=== PATIENT | female | born 1975 | race Hispanic/Latino ===

== ENCOUNTER 2018-04-18 18:28 | Inpatient (IN) | payer BC ==
[~2018-04-18] VITALS: Ht 162.6 cm; Wt 106.6 kg
--- OUTSIDE RECORDS SUMMARY | 2018-04-18 18:32 | XMS REPORT | Clinical Summary ---
Author Author [facility] Organization [facility] Address Unknown Phone Unavailable Care Team Providers Care Gyroscopic Engineering Technician Name Role Phone Leodan Leung MD PCP Allergies No Known Allergies Medications End Date Status Medication Sig Dispensed Refills Start Date Active sertraline (ZOLOFT) 100 0 MG tablet 7 Active ondansetron ODT 0 (ZOFRAN-ODT) 4 MG 7 disintegrating tablet Active ASPIRIN/ACETAMINOPHEN/CAF Take by 0 FEINE (EXCEDRIN MIGRAINE mouth. ORAL) Active PROAIR HFA 90 0 mcg/actuation inhaler 8 Active cholecalciferol, vitamin TK 1 C PO Q 2 D3, 50,000 unit capsule WEEK 8 Active methocarbamol (ROBAXIN) TK 1 T PO 0 750 MG tablet BID 8 Active Problems Not on file Encounters Care Team Description Date Type Specialty Juni Gomez MD Renal colic (Primary Dx); Intractable pain; Hydronephrosis, unspecified hydronephrosis type 04/18/2018 Emergency Emergency Medicine Boogie Schaeffer MD Irritable bowel syndrome, unspecified type; Lesion of pancreas 05/13/2017 Hospital Radiology Encounter Ramone Joseph MA Irritable bowel syndrome, unspecified type (Primary Dx); Lesion of pancreas 05/13/2017 Telephone Gastroenterology Boogie Schaeffer MD NAFLD (nonalcoholic fatty liver disease) (Primary Dx); Constipation, unspecified constipation type; Irritable bowel syndrome with constipation 05/07/2017 Office Visit Gastroenterology Boogie Schaeffer MD 04/23/2017 Telephone Gastroenterology Boogie Schaeffer MD 04/21/2017 Telephone Gastroenterology after 04/17/2017 Family History Medical History Relation Name Comments Heart disease Father No Known Problems Mother Colon cancer Paternal Aunt Kidney cancer Paternal Grandmother Heart disease Sister Relation Name Status Comments Father Alive Mother Alive Paternal Aunt Paternal Grandmother Sister Social History Date Tobacco Use Types Packs/Day Years Used Never Smoker Smokeless Tobacco: Never Used Alcohol Use Drinks/Week oz/Week Comments No Alcohol Habits Answer Date Recorded How often do you have a drink containing alcohol? Never 04/18/2018 How many drinks containing alcohol do you have on Not asked a typical day when you are drinking? How often do you have six or more drinks on one Not asked occasion? Sex Assigned at Date Recorded Not on file Industry Job Start Date Occupation Not on file Not on file Not on file Travel End Travel History Travel Start No recent travel history available. Last Filed Vital Signs Time Taken Vital Sign Reading 04/18/2018 4:57 PM QUALITY CONTROL INSPECTOR Blood Pressure 130/94 04/18/2018 4:57 PM QUALITY CONTROL INSPECTOR Pulse 74 04/18/2018 4:57 PM QUALITY CONTROL INSPECTOR Temperature 36.8 C (98.3 F) 04/18/2018 4:57 PM QUALITY CONTROL INSPECTOR Respiratory Rate 12 04/18/2018 4:57 PM QUALITY CONTROL INSPECTOR Oxygen Saturation 97% - Inhaled Oxygen - Concentration 04/18/2018 8:07 AM QUALITY CONTROL INSPECTOR Weight 107 kg (235 lb) 04/18/2018 8:07 AM QUALITY CONTROL INSPECTOR Height 162.6 cm (5' 4") 04/18/2018 8:07 AM QUALITY CONTROL INSPECTOR Body Mass Index 40.34 Plan of Treatment Health Maintenance Due Date Last Done Comments CERVICAL CANCER SCREENING 1997 INFLUENZA VACCINE 10/06/2017 Procedures Comments Procedure Name Priority Date/Time Associated Diagnosis CT ABDOMEN PELVIS W STAT 04/18/2018 CONTRAST 12:45 PM QUALITY CONTROL INSPECTOR GRAM STAIN STAT 04/18/2018 9:58 AM QUALITY CONTROL INSPECTOR ESTIMATED GFR STAT 04/18/2018 9:46 AM QUALITY CONTROL INSPECTOR LIPASE LEVEL STAT 04/18/2018 9:46 AM QUALITY CONTROL INSPECTOR COMPREHENSIVE METABOLIC STAT 04/18/2018 PANEL 9:46 AM QUALITY CONTROL INSPECTOR CBC WITH PLATELET AND STAT 04/18/2018 DIFFERENTIAL 9:46 AM QUALITY CONTROL INSPECTOR HCG QUALITATIVE, URINE STAT 04/18/2018 SCREEN 8:52 AM QUALITY CONTROL INSPECTOR URINALYSIS SCREEN AND STAT 04/18/2018 MICROSCOPY, WITH REFLEX 8:52 AM QUALITY CONTROL INSPECTOR TO CULTURE CT ABDOMEN PELVIS W Routine 05/13/2017 Irritable bowel syndrome, CONTRAST 6:20 PM QUALITY CONTROL INSPECTOR unspecified type Lesion of pancreas PERSONAL FACTORS Routine 04/30/2017 7:35 AM QUALITY CONTROL INSPECTOR ALBUMIN LEVEL Routine 04/30/2017 7:35 AM QUALITY CONTROL INSPECTOR PLATELET COUNT Routine 04/30/2017 7:35 AM QUALITY CONTROL INSPECTOR ALT (SGPT) Routine 04/30/2017 7:35 AM QUALITY CONTROL INSPECTOR AST (SGOT) Routine 04/30/2017 7:35 AM QUALITY CONTROL INSPECTOR GLUCOSE LEVEL Routine 04/30/2017 7:35 AM QUALITY CONTROL INSPECTOR INTERPRETATION (REFLEX Routine 04/30/2017 [facility]) 7:35 AM QUALITY CONTROL INSPECTOR NAFLD FIBROSIS SCORE Routine 04/30/2017 (REFLEX) 7:35 AM QUALITY CONTROL INSPECTOR after 04/17/2017 Results * CT Abdomen Pelvis W Contrast (04/18/2018 12:45 PM QUALITY CONTROL INSPECTOR) Only the most recent of 2 results within the time period is included. Narrative Performed At EXAMINATION:CT ABDOMEN PELVIS W CONTRAST [facility] CLINICAL HISTORY:Nauseavomiting TECHNIQUE: Multiple axial images of the abdomen and pelvis were obtained following intravenous administration of iodinated contrast. CT imaging was performed with iterative reconstruction technique and/or automated exposure control to reduce radiation dose. COMPARISON: 05/13/2017 FINDINGS: LUNG BASES: Unremarkable ABDOMEN: Liver: Hepatic steatosis. Gallbladder: Prior cholecystectomy. Spleen: The spleen is not enlarged. Pancreas: The pancreas is unremarkable. Adrenal Glands: The adrenal glands are unremarkable. Kidneys: There are multiple right nonobstructing renal stones. A few nonobstructing left stones are present. A 6 mm stone is present in the proximal left ureter resulting in mild left hydronephrosis and asymmetric left perinephric stranding. Vascular: The abdominal aorta is nonaneurysmal. Nodes: No enlarged retroperitoneal or mesenteric lymphadenopathy. Bowel: No bowel obstruction or inflammatory changes. Ascites/fluid collections: No ascites or fluid collections. PELVIS: No mass, fluid collection or significant adenopathy. MUSCULOSKELETAL: No suspicious osseous lesions. IMPRESSION: 1.6 mm stone in the proximal left ureter results in mild left hydronephrosis and asymmetric left perinephric stranding. 2.Additional bilateral nonobstructing nephrolithiasis. 3.Hepatic steatosis. [facility]-[id number] Procedure Note Interface, Radiology Results Incoming - 04/18/2018 12:52 PM QUALITY CONTROL INSPECTOR EXAMINATION: CT ABDOMEN PELVIS W CONTRAST CLINICAL HISTORY: Nausea vomiting TECHNIQUE: Multiple axial images of the abdomen and pelvis were obtained following intravenous administration of iodinated contrast. CT imaging was performed with iterative reconstruction technique and/or automated exposure control to reduce radiation dose. COMPARISON: 05/13/2017 FINDINGS: LUNG BASES: Unremarkable ABDOMEN: Liver: Hepatic steatosis. Gallbladder: Prior cholecystectomy. Spleen: The spleen is not enlarged. Pancreas: The pancreas is unremarkable. Adrenal Glands: The adrenal glands are unremarkable. Kidneys: There are multiple right nonobstructing renal stones. A few nonobstructing left stones are present. A 6 mm stone is present in the proximal left ureter resulting in mild left hydronephrosis and asymmetric left perinephric stranding. Vascular: The abdominal aorta is nonaneurysmal. Nodes: No enlarged retroperitoneal or mesenteric lymphadenopathy. Bowel: No bowel obstruction or inflammatory changes. Ascites/fluid collections: No ascites or fluid collections. PELVIS: No mass, fluid collection or significant adenopathy. MUSCULOSKELETAL: No suspicious osseous lesions. IMPRESSION: 1. 6 mm stone in the proximal left ureter results in mild left hydronephrosis and asymmetric left perinephric stranding. 2. Additional bilateral nonobstructing nephrolithiasis. 3. Hepatic steatosis. [facility]-[id number] Performing Organization Address City/State/Zipcode Phone Number [facility] [address] [place] [address] * Gram stain (04/18/2018 9:58 AM QUALITY CONTROL INSPECTOR) Gram stain result No WBC's [facility] Many Gram positive rods [facility]OSP[facility] Comment: Specimen Information Specimen Source: Urine Specimen Site: Clean catch Specimen Urine Performing Organization Address City/[facility]/Zipcode Phone Number [facility] DEPARTMENT OF [address] [place] [address] PATHOLOGY AND GENOMIC MEDICINE [place] [employer] [address] [place] [id number] [place] [address] * Estimated GFR (04/18/2018 9:46 AM QUALITY CONTROL INSPECTOR) Estimated GFR >=90 mL/min/1.73 m2 [facility] Comment: [facility] CatergoryUnitsInte rpretation G1 >=90 Normal or high G2 60-89Mildly decreased O3l13-11 Mildly to moderately decreased [id number] Moderately to severely decreased G4 15-29Severely decreased G5 <15Kidney failure The eGFR was calculated using the Chronic Kidney Disease Epidemiology Collaboration (CKD-EPI) equation. Interpretation is based on recommendations of the National Kidney Foundation-Kidney Disease Outcomes Quality Initiative (NKF-KDOQI) published in 2014. Specimen Plasma specimen Performing Organization Address City/State/Zipcode Phone Number [facility] DEPARTMENT [address] [place] [phone] PATHOLOGY AND GENOMIC MEDICINE [facility] [address] * CBC with platelet and differential (04/18/2018 9:46 AM QUALITY CONTROL INSPECTOR) WBC 9.8 4.2 - 11.0 k/uL [facility] RBC 4.90 4.04 - 5.86 m/uL [facility] HGB 12.7 11.5 - 15.3 g/dL [facility] HCT 40.8 34.0 - 45.0 % [facility] MCV 83.3 80.0 - 98.0 fL [facility] MCH 25.9 (L) 27.0 - 34.0 pg [facility] MCHC 31.1 (L) 31.5 - 36.5 g/dL [facility] RDW - SD 43.1 37.0 - 51.0 fL [facility] MPV 10.1 7.4 - 10.4 fL [facility] Platelet count 301 150 - 400 k/uL [facility] Nucleated RBC 0.00 /100 WBC [facility] Neutrophils 72.7 (H) 36.0 - 66.0 % [facility] Lymphocytes 19.9 (L) 24.0 - 44.0 % [facility] Monocytes 5.3 0.0 - 6.0 % [facility] Eosinophils 1.4 0.0 - 6.0 % [facility] Basophils 0.3 0.0 - 1.2 % [facility] Immature granulocytes 0.4 0.0 - 1.0 % [facility] Specimen Blood Performing Organization Address City/[facility] Cent[facility]ode [place] [address] PATHOLOGY AND GENOMIC MEDICINE [address] * Lipase level (04/18/2018 9:46 AM QUALITY CONTROL INSPECTOR) Lipase 27 13 - 60 U/L [facility] Specimen Plasma specimen Performing Organization Address [facility] [place] [address] PATHOLOGY AND GENOMIC MEDICINE [address] * Comprehensive metabolic panel (04/18/2018 9:46 AM QUALITY CONTROL INSPECTOR) Sodium 142 135 - 150 mEq/L [facility] Potassium 4.1 3.5 - 5.0 mEq/L [facility] Chloride 105 98 - 112 mEq/L [facility] CO2 24 24 - 31 mmol/L [facility] Anion gap 13@ANIO 7 - 15 mEq/L [facility] BUN 10 7 - 18 mg/dL [facility] Creatinine 0.80 0.50 - 0.90 mg/dL [facility] Glucose 128 (H) 65 - 100 mg/dL [facility] Calcium 9.4 8.3 - 10.2 mg/dL [facility] Protein 7.4 6.3 - 8.3 g/dL [facility] Albumin 3.6 3.5 - 5.0 g/dL [facility] A/G ratio 0.9 0.7 - 3.8 [facility] Alkaline phosphatase 92 0 - 104 U/L [facility] AST 24 10 - 35 U/L [facility] ALT 43 5 - 50 U/L [facility] Total bilirubin 0.4 0.2 - 1.2 mg/dL [facility] Specimen Plasma specimen Performing Organization Address City/[facility] Centercode Phone Number [facility] DEPARTMENT OF [address] [place] [address] PATHOLOGY AND GENOMIC MEDICINE [place] [address] [address] * Urinalysis screen and microscopy, with reflex to culture (04/18/2018 8:52 AM QUALITY CONTROL INSPECTOR) Specimen site Clean catch [facility] Color, UA Yellow [facility] Appearance, UA Cloudy [facility] Specific gravity, UA 1.017 1.001 - 1.035 [facility] pH, UA 6.0 5.0 - 8.5 [facility] Protein, UA 1+ (A) Negative [facility] Glucose, UA Negative Negative [facility] Ketones, UA Negative Negative [facility] Bilirubin, UA Negative Negative [facility] Blood, UA Large (A) Negative [facility] Nitrite, UA Negative Negative [facility] Urobilinogen, UA Negative <2.0 [facility] Leukocyte esterase, UA Trace (A) Negative [facility] Epithelial cells, UA Many /HPF [facility] WBC, UA 8 (H) 0 - 5 /HPF [facility] RBC, UA >200 (H) 0 - 5 /HPF [facility] Bacteria, UA Moderate (A) None seen [facility] Yeast, UA Moderate (A) [facility] Yeast with pseudohyphae, None seen [facility] Specimen Urine Performing Organization Address City/[facility]/Zipcode Phone Number [facility] DEPARTMENT OF [address] [facility] [place] [address] PATHOLOGY AND GENOMIC MEDICINE [place] [employer] [facility] [address] [facility] [facility] * hCG qualitative, urine screen (04/18/2018 8:52 AM QUALITY CONTROL INSPECTOR) hCG qualitative, urine Negative Negative [facility] Comment: [facility] The manufacturers stated sensitivity of HcG test for serum is >/=10 mIU/ml and urine is >/=20mIU/ml. Specimen Urine Performing Organization Address City/[facility]/Zipcode Phone Number [facility] [address] [place] [phone] PATHOLOGY AND GENOMIC MEDICINE [facility] [address] * PERSONAL FACTORS (04/30/2017 7:35 AM QUALITY CONTROL INSPECTOR) Height feet 5 ft [employer] [place] Height inches 4 in [employer] [place] Weight 231 lbs [employer] [place] Calculated BMI 39.6 [employer] [place] Diabetic [facility] [place] Narrative Performed At FASTING:YES [facility] FASTING: YES Resulting Agency Comment Performing Organization Information: Site ID: [id number] Name: [facility] Address: [address] [place] [phone] Director: Emma Alston MD Performing Organization Address City/[facility]/[place] [address] * INTERPRETATION (04/30/2017 7:35 AM QUALITY CONTROL INSPECTOR) Interpretation Comment: [employer] NAFLD Fibrosis Score less than RODRIGUEZ -1.455:Consistent with the absence of significant fibrosis. Reference: Mary P, Gini RANKIN, Bruce G, Hailee E, Melecio J, Yehuda GC, Stewart F, Saksena S, Sarkis DA, et al. The NAFLD fibrosis score: a noninvasive system that identifies liver fibrosis in patients with NAFLD. HEPATOLOGY 2007;45:846-854. If fasting conditions were not met, use caution when interpreting the glucose test result and the NAFLD Fibrosis Score. Narrative Performed At FASTING:YES [facility] FASTING: YES Resulting Agency Comment Performing Organization Information: Site ID: [id number] Name: [facility] Address: [address] [place] [phone] Director: Emma Alston MD Performing Organization Address City/[facility]/[place]code [place] [address] * NAFLD FIBROSIS SCORE (REFLEX) (04/30/2017 7:35 AM QUALITY CONTROL INSPECTOR) NAFLD fibrosis score -2.269 [employer] [place] Narrative Performed At FASTING:YES [facility] FASTING: YES Resulting Agency Comment Performing Organization Information: Site ID: [id number] Name: [facility] Address: [address] [place], [place] [id number] Director: Emma Alston MD Performing Organization Address [facility] Centercode [place] [address] * Platelet count (04/30/2017 7:35 AM QUALITY CONTROL INSPECTOR) Platelet count 383 140 - 400 Thousand/uL [employer] [place] Narrative Performed At FASTING:YES [facility] FASTING: YES Resulting Agency Comment Performing Organization Information: Site ID: [id number] Name: [facility] Address: [address] [place] [phone] Director: Emma Alston MD Performing Organization Address [facility] Centercode [place] [address] * ALT (SGPT) (04/30/2017 7:35 AM QUALITY CONTROL INSPECTOR) ALT 20 6 - 29 U/L [employer] [place] Narrative Performed At FASTING:YES [facility] FASTING: YES Resulting Agency Comment Performing Organization Information: Site ID: [id number] Name: [facility] Address: [address] [place] [phone] Director: Emma Alston MD Performing Organization Address [facility]/[place]code [place] [address] * AST (SGOT) (04/30/2017 7:35 AM QUALITY CONTROL INSPECTOR) AST 18 10 - 30 U/L [facility] [employer] [place] Narrative Performed At FASTING:YES [facility] FASTING: YES Resulting Agency Comment Performing Organization Information: Site ID: [id number] Name: [facility] Address: [address] [place] [phone] Director: Emma Alston MD Performing Organization Address [facility] Centercode Phone Number [employer] [place] [address] [place] [address] * Glucose level (04/30/2017 7:35 AM QUALITY CONTROL INSPECTOR) Glucose 117 (H) 65 - 99 mg/dL [employer] Comment: [place] Fasting reference interval For someone without known diabetes, a glucose value between 100 and 125 mg/dL is consistent with prediabetes and should be confirmed with a follow-up test. Narrative Performed At FASTING:YES [facility] FASTING: YES Resulting Agency Comment Performing Organization Information: Site ID: [id number] Name: [facility] Address: [address] [place] [phone] Director: Emma Alston MD Performing Organization Address [facility] Cent[facility]ofl Phone Number [employer] [place] [address] [place] [address] * Albumin level (04/30/2017 7:35 AM QUALITY CONTROL INSPECTOR) Albumin, S 4.3 3.6 - 5.1 g/dL [employer] [place] Narrative Performed At FASTING:YES [facility] FASTING: YES Resulting Agency Comment Performing Organization Information: Site ID: [id number] Name: [facility] Address: [address] [place], [place] [phone] Director: Emma Alston MD Performing Organization Address [facility] Centercode Phone Number [employer] [place] [address] [place] [address] after 04/17/2017 Insurance Payer Benefit Subscriber ID Type Phone Address Plan / Group BCBS EXCHANGE BLUE xxxxxxxxxxxx Exchange ADVANTAGE HMO EXCH Advance Directives Patient has advance care planning documents on file. For more information, wilmer steve contact: Chandler Diallo [address] [place] [phone]
--- OUTSIDE RECORDS SUMMARY | 2018-04-18 18:33 | XMS REPORT ---
Author Author Admin, [facility] Address Unknown Phone Unavailable Allergies, Adverse Reactions, Alerts Allergy Name Reaction Description Start Date Severity Status Provider No Known Allergies Bri Schenider MA Conditions or Problems Problem Name Problem Code Onset Date Status Entry Date Provider Comment Standard Description Annotate Abdominal pain 789.00 Active Kimmie eKvin MD Abdominal pain, unspecified site DIARRHEA 787.91 Active Kimmie Kevin MD Diarrhea BMI 40.0-44.9 Active Domonique Schneider MD Body Mass Index 40.0-44.9, adult MORBID OBESITY Active Domonique Schneider MD Morbid obesity Back pain 724.5 Active Kimmie Kevin MD Backache, unspecified Diphtheria, tetanus and acellular pertussis vaccination given V06.1 Active Domonique Schneider MD Need for prophylactic vaccination and inoculation against Kbmkrbrdf-bhbbhta-judevcnbf, combined [DTP] [DTaP] Unspecified open wound, unspecified lower leg, initial encounter 891.0 Active Domonique Schneider MD Open wound of knee, leg [except thigh], and ankle, without mention of complication Herpes, genital NOS 054.10 Active Gina Meyer MD Genital herpes, unspecified Acne, cystic 706.1 Active Elvia Conway D.O. Other acne Headache, tension 307.81 Active Elvia Conway D.O. 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 Insomnia due to mental disorder Anemia, deficiency 281.9 Active Alexandra Mims MD Unspecified deficiency anemia Anxiety 300.00 Active Alexandra Mims MD Anxiety state, unspecified Near syncope 780.2 Active Alexandra Mims MD Syncope and collapse Perimenopausal 627.2 Active Elvia Conway D.O. Symptomatic menopausal or female climacteric states Hot flashes, non-menopausal, female 782.62 Active Gina Meyer MD Flushing Vaccination against influenza V04.81 Active Gina Meyer MD Need for prophylactic vaccination and inoculation against influenza Cervical spondylosis 721.0 Active Gina Meyer MD Cervical spondylosis without myelopathy Decreased libido 799.81 Active Nikunj Roberts MD Decreased libido DEPRESSION, MAJOR 296.20 Active Neil Rich MD Major depressive disorder, single episode, unspecified degree Abdominal pain, NOS ICD-789.00 Inactive Domonique Schneider MD Rhinosinusitis, acute ICD-461.8 Inactive Domonique Schneider MD BMI 38.0-38.9 Inactive Domonique Schneider MD Sinus congestion ICD-478.19 Inactive Domonique Schneider MD Constipation ICD-564.00 Inactive Alexandra Mims MD RASH ICD-782.1 Inactive Domonique Schneider MD Obesity Inactive Domonique Schneider MD Verrucae, warts viral ICD-078.10 Inactive Alexandra Mims MD Nausea and vomiting ICD-787.01 Inactive Alexandra Mims MD Abdominal cramps ICD-789.00 Inactive Alexandra Mims MD Insect bite ICD-919.4 Inactive Gina Meyer MD Spondylosis, cervical 721.0 Inactive Nikunj Roberts MD Cervical spondylosis without myelopathy Well woman ICD-V72.31 Inactive Alexandra Mims MD Shoulder pain, left ICD-719.41 Inactive Gina Meyer MD ILIOTIBIAL BAND SYNDROME, BILATERAL ICD-728.89 Inactive Gina Meyer MD COUGH ICD-786.2 Inactive Елена Jacobo DO NEED PROPHYLACTIC VACCINATION&INOCULATION FLU ICD-V04.81 Inactive Елена Jacobo DO OBESITY ICD-278.00 Inactive Domonique Schneider MD MENORRHAGIA ICD-626.2 Inactive Gina Meyer MD Abdominal pain, NOS 789.00 Resolved Domonique Schneider MD Abdominal pain, unspecified site Rhinosinusitis, acute 461.8 Resolved Domonique Schneider MD Other acute sinusitis BMI 38.0-38.9 Resolved Domonique Schneider MD Body Mass Index 38.0-38.9, adult Sinus congestion 478.19 Resolved Domonique Schneider MD Other disease of nasal cavity and sinuses Constipation 564.00 Resolved Gina Meyer MD Constipation, unspecified RASH 782.1 Resolved Domonique Schneider MD Rash and other nonspecific skin eruption Obesity Resolved Domonique Schneider MD Obesity, unspecified Verrucae, warts viral 078.10 Resolved Gina Meyer MD Viral warts, unspecified Nausea and vomiting 787.01 Resolved Gina Meyer MD Nausea with vomiting Abdominal cramps 789.00 Resolved Gina Meyer MD Abdominal pain, unspecified site Insect bite 919.4 Resolved Gina Meyer MD Insect bite, nonvenomous, of other, multiple, and unspecified sites, without mention of infection Well woman V72.31 Resolved Gina Meyer MD Routine gynecological examination Shoulder pain, left 719.41 Resolved Gina Meyer MD Pain in joint involving shoulder region ILIOTIBIAL BAND SYNDROME, BILATERAL 728.89 Resolved Gina Meyer MD Other disorder of muscle, ligament, and fascia COUGH 786.2 Resolved Neil Rich MD Cough NEED PROPHYLACTIC VACCINATION&INOCULATION FLU V04.81 Resolved Neil Rich MD Need for prophylactic vaccination and inoculation against influenza OBESITY 278.00 Resolved Domonique Schneider MD Obesity, unspecified MENORRHAGIA 626.2 Resolved Gina Meyer MD Excessive or frequent menstruation Medication List Medication Instructions Start Date Stop Date Generic Name NDC Status Provider Patient Instruction BENTYL 10 MG ORAL CAPSULE 1 by mouth 4 times a day as needed DICYCLOMINE HCL 92559437205 Active Kimmie Kevin MD Active ACYCLOVIR 400 MG ORAL TABLET 1 tablet by mouth three times a day for 5 days ACYCLOVIR 53923569062 Active Domonique Schneider MD Active ZOLOFT 100 MG ORAL TABLET 1.5 by mouth nightly at bedtime SERTRALINE HCL 28463843980 Active Domonique Schneider MD Active FERROUS SULFATE 325 (65 Fe) MG ORAL TABLET DELAYED RELEASE 1 by mouth 2 times a day FERROUS SULFATE 22290753563 Active Alexandra Mims MD Active BACLOFEN 10 MG ORAL TABLET one tablet by mouth three times a day as needed for muscle spasm BACLOFEN 10 MG ORAL TABLET 855873 BACLOFEN Inactive CLONAZEPAM 0.5 MG ORAL TABLET 1 By Mouth once a day as needed for anxiety episode CLONAZEPAM 0.5 MG ORAL TABLET 595933 CLONAZEPAM Inactive CEPHALEXIN 500 MG ORAL CAPSULE 1 cap by mouth two times a day CEPHALEXIN 500 MG ORAL CAPSULE 945264 CEPHALEXIN Inactive AMOXICILLIN 500 MG ORAL CAPSULE 1 by mouth 3 times a day AMOXICILLIN 500 MG ORAL CAPSULE 546249 AMOXICILLIN Inactive BENZOYL PEROXIDE 10 % EXTERNAL GEL apply to affected area as directed nightly BENZOYL PEROXIDE 10 % EXTERNAL GEL 886398 BENZOYL PEROXIDE Inactive CLEOCIN-T 1 % EXTERNAL LOTION apply to affected area as directed twice a day CLEOCIN-T 1 % EXTERNAL LOTION 183052 CLINDAMYCIN PHOSPHATE(TOPICAL) Inactive TRAZODONE HCL 50 MG ORAL TABLET take 1/2 to one tab By Mouth take at bedtime As Needed insomnia TRAZODONE HCL 50 MG ORAL TABLET 294559 TRAZODONE HCL Inactive SERTRALINE HCL 50 MG ORAL TABLET Take half a pill daily for 8 days, then a whole pill daily. SERTRALINE HCL 50 MG ORAL TABLET 225240 SERTRALINE HCL Inactive BENTYL 20 MG ORAL TABLET 1 by mouth 4 times a day BENTYL 20 MG ORAL TABLET DICYCLOMINE HCL Inactive TYLENOL WITH CODEINE #3 300-30 MG ORAL TABLET 1 tablet By Mouth Every Six hours As Needed pain. TYLENOL WITH CODEINE #3 300-30 MG ORAL TABLET ACETAMINOPHEN-CODEINE Inactive CEPHALEXIN 500 MG ORAL CAPSULE 1 cap by mouth Twice a Day CEPHALEXIN 500 MG ORAL CAPSULE 180652 CEPHALEXIN Inactive EFFEXOR XR 37.5 MG ORAL CAPSULE EXTENDED RELEASE 24 HOUR take one capsule By Mouth daily EFFEXOR XR 37.5 MG ORAL CAPSULE EXTENDED RELEASE 24 HOUR VENLAFAXINE HCL Inactive AZITHROMYCIN 250 MG ORAL TABLET 2 tablets by mouth on day one then one tablet by mouth each day for a total of 5 days AZITHROMYCIN 250 MG ORAL TABLET 189000 AZITHROMYCIN Inactive PROVENTIL HFA 108 (90 Base) MCG/ACT INHALATION AEROSOL SOLUTION 2-4 puffs every 4 hours as needed PROVENTIL HFA 108 (90 Base) MCG/ACT INHALATION AEROSOL SOLUTION ALBUTEROL SULFATE Inactive TESSALON PERLES 100 MG ORAL CAPSULE 100 mg By Mouth Three Times a Day As Needed for cough TESSALON PERLES 100 MG ORAL CAPSULE 989266 BENZONATATE Inactive SPRINTEC 28 0.25-35 MG-MCG ORAL TABLET Take 5 tabs on day 1, 4 tabs on day 2, 3 tabs on day 3, 2 tabs on day 4, and 1 tab daily until the pack is finished. SPRINTEC 28 0.25-35 MG-MCG ORAL TABLET 569214 NORGESTIMATE-ETH ESTRADIOL Inactive BACLOFEN 10 MG ORAL TABLET one tablet by mouth three times a day as needed for muscle spasm BACLOFEN 04405176024 No Longer Active Domonique Schneider MD Active CLONAZEPAM 0.5 MG ORAL TABLET 1 By Mouth once a day as needed for anxiety episode CLONAZEPAM 32420066860 No Longer Active Domonique Schneider MD Active CEPHALEXIN 500 MG ORAL CAPSULE 1 cap by mouth two times a day CEPHALEXIN 07731555955 No Longer Active Domonqiue Schneider MD Active AMOXICILLIN 500 MG ORAL CAPSULE 1 by mouth 3 times a day AMOXICILLIN 01901724416 No Longer Active Domonique Schneider MD Active BENZOYL PEROXIDE 10 % EXTERNAL GEL apply to affected area as directed nightly BENZOYL PEROXIDE 19452095656 No Longer Active Domonique Schneider MD Active CLEOCIN-T 1 % EXTERNAL LOTION apply to affected area as directed twice a day CLINDAMYCIN PHOSPHATE(TOPICAL) 59094521366 No Longer Active Domonique Shcneider MD Active TRAZODONE HCL 50 MG ORAL TABLET take 1/2 to one tab By Mouth take at bedtime As Needed insomnia TRAZODONE HCL 72515297204 No Longer Active Domonique Schneider MD Active SERTRALINE HCL 50 MG ORAL TABLET Take half a pill daily for 8 days, then a whole pill daily. SERTRALINE HCL 47502444603 No Longer Active Gina Meyer MD Active BENTYL 20 MG ORAL TABLET 1 by mouth 4 times a day DICYCLOMINE HCL 27016733474 No Longer Active Gina Meyer MD Active TYLENOL WITH CODEINE #3 300-30 MG ORAL TABLET 1 tablet By Mouth Every Six hours As Needed pain. ACETAMINOPHEN-CODEINE 04322235100 No Longer Active Gina Meyer MD Active CEPHALEXIN 500 MG ORAL CAPSULE 1 cap by mouth Twice a Day CEPHALEXIN 77146246223 No Longer Active Domonique Schneider MD Active CITALOPRAM HYDROBROMIDE 20 MG ORAL TABLET 1 tab by mouth daily CITALOPRAM HYDROBROMIDE 31508960969 No Longer Active Domonique Schneider MD Active EFFEXOR XR 37.5 MG ORAL CAPSULE EXTENDED RELEASE 24 HOUR take one capsule By Mouth daily VENLAFAXINE HCL 05825941529 No Longer Active Gina Meyer MD Active AZITHROMYCIN 250 MG ORAL TABLET 2 tablets by mouth on day one then one tablet by mouth each day for a total of 5 days AZITHROMYCIN 81041749309 No Longer Active Neil Rich MD Active PROVENTIL HFA 108 (90 Base) MCG/ACT INHALATION AEROSOL SOLUTION 2-4 puffs every 4 hours as needed ALBUTEROL SULFATE 99536827780 No Longer Active Neil Rich MD Active TESSALON PERLES 100 MG ORAL CAPSULE 100 mg By Mouth Three Times a Day As Needed for cough BENZONATATE 17910691154 No Longer Active Neil Rich MD Active SPRINTEC 28 0.25-35 MG-MCG ORAL TABLET Take 5 tabs on day 1, 4 tabs on day 2, 3 tabs on day 3, 2 tabs on day 4, and 1 tab daily until the pack is finished. NORGESTIMATE-ETH ESTRADIOL 20693559827 No Longer Active Gina Meyer MD Active Immunizations Vaccine Administration Date Value Standard Description Tetanus toxoid, reduced diphtheria toxoid and acellular Pertussis vaccine, absorbed (TdaP) given given tetanus toxoid, reduced diphtheria toxoid, and acellular pertussis vaccine, adsorbed influenza immunization (Flu Vax) has been administered given influenza virus vaccine, unspecified formulation influenza immunization (Flu Vax) has been administered given influenza virus vaccine, unspecified formulation Vital Signs Date Name Value Unit Range Description blood pressure, diastolic 73 mm[Hg] BP pinto blood pressure, systolic 101 mm[Hg] BP sys height E&M 64 [in_us] Bdy height pulse rate E&M 77 /min Heart rate respiratory rate E&M 19 /min Resp rate temperature E&M 98.6 [degF] Body temperature weight E&M 241.60 [lb_av] Weight Measured blood pressure, diastolic 68 mm[Hg] BP pinto blood pressure, systolic 103 mm[Hg] BP sys height E&M 64 [in_us] Bdy height pulse rate E&M 78 /min Heart rate respiratory rate E&M 19 /min Resp rate temperature E&M 98.5 [degF] Body temperature weight E&M 236 [lb_av] Weight Measured Diagnostic Results Date Name Value Unit Range Description Lab Report: CBC With Differential/Platelet - Hematology hematocrit, blood 28.9 % 34.0-46.6 Lab Report: HSV 1 and 2-Specific Ab, IgG, Panel [id number] - Serology HERPES SIMPLEX VIRUS TYPE 1 AB.IGG (PT; SER; QN; ) 49.70 index 0.00-0.90 Lab Report: TSH, Lipase, Serum - Chemistry thyroid stimulating hormone, serum 2.320 u[iU]/mL 0.450-4.500 Lab Report: CBC With Differential/Platelet, TSH, Prolactin - Chemistry prolactin, serum 7.1 ng/mL 4.8-23.3 Lab Report: CBC With Differential/Platelet - Hematology neutrophils as percent of blood leukocytes 52 % basophils as percent of blood leukocytes 1 % Office Visit: Adult Followup Dr. Mims - Urinalysis protein, urine, semiquantitative (dipstick) negative leukocyte esterase, urine, by dipstick negative Lab Report: CBC With Differential/Platelet - Hematology mean corpuscular hemoglobin, RBC 21.2 pg 26.6-33.0 Office Visit: Adult Followup Dr. Mims - Urinalysis specific gravity, urine 1.020 Lab Report: TSH, Lipase, Serum - Chemistry lipase, serum 30 U/L [iU]/L 0-59 Lab Report: CBC With Differential/Platelet - Hematology mean corpuscular hemoglobin concentration, RBC 29.1 G/DL % 31.5-35.7 Office Visit: Adult Followup Dr. Prasanna Salmeron Urinalysis nitrite, urine, semiquantitative negative Lab Report: CBC With Differential/Platelet - Hematology erythrocyte (RBC) count 3.97 X10E6/UL 10*6/mm3 3.77-5.28 hemoglobin, blood 8.4 g/dL 11.1-15.9 Office Visit: Adult Followup Dr. Mims - Urinalysis urine color yellow bilirubin, urine negative Lab Report: CBC With Differential/Platelet - Chemistry Absolute Neutrophils 3.3 X10E3/UL 10*3/uL 1.4-7.0 Lab Report: CBC With Differential/Platelet - Hematology lymphocytes as percent of blood leukocytes 35 % Office Visit: Adult Followup Dr. Mims - Urinalysis glucose, urine, semiquantitative negative Lab Report: CBC With Differential/Platelet - Hematology mean corpuscular volume, RBC 73 fL 79-97 basophil count, absolute 0.1 x10E3/uL 0.0-0.2 monocytes as percent of blood leukocytes 9 % Eosinophil Absolute Count 0.2 X10E3/UL 10*3/uL 0.0-0.4 eosinophils as percent of blood leukocytes 3 % Office Visit: Adult Followup Dr. Prasanna Salmeron Urinalysis appearance, urine clear blood in urine (hemoglobin) by dipstick negative urobilinogen, urine, semiquantitative (dipstick) negative Lab Report: CBC With Differential/Platelet - Hematology red blood cell distribution width 16.6 % 12.3-15.4 Office Visit: Adult Followup Dr. Prasanna Salmeron Urinalbravo pH, urine, semiquantitative 5.5 Lab Report: CBC With Differential/Platelet - Hematology leukocyte count, blood 6.4 X10E3/UL 10*3/mm3 3.4-10.8 monocyte count, blood, automated 0.6 X10E3/UL 10*3/uL 0.1-0.9 Office Visit: Adult Followup Dr. Prasanna Salmeron Urinalysis ketones, urine, by test strip negative Lab Report: CBC With Differential/Platelet - Chemistry immature granulocytes, percentage of total cells, blood 0 % Lab Report: CBC With Differential/Platelet - Hematology platelet count 415 X10E3/UL 10*3/mm3 150-379 Lab Report: HSV 1 and 2-Specific Ab, IgG, Panel [id number] - Serology HERPES SIMPLEX VIRUS TYPE 2 AB.IGG (PT; SER; QN; ) >23.60 index 0.00-0.90 Lab Report: CBC With Differential/Platelet - Hematology lymphocyte count, blood, automated 2.2 X10E3/UL 10*3/mm3 0.7-3.1 Encounters Date Encounter Provider Code Facility 11:20:20 CDT Ofc Vst, Est Level III Kimmie Kevin MD CPT-85898 [facility] 14:47:24 CDT Est Patient Exp Problem - 73934 Domonique Schneider MD CPT-04519 [facility] 16:24:40 CDT Est Patient Detailed - 38764 Kimmie Kevin MD CPT-50861 [facility] 17:27:45 CDT Est Patient Exp Problem - 66296 Kimmie Kevin MD CPT-13602 [facility] 10:32:56 CDT Est Patient Exp Problem - 28087 Domonique Schneider MD CPT-23761 [facility] 18:08:36 CREW DISPATCHER Est Patient Detailed - 32027 Gina Meyer MD CPT-17860 [facility] 12:50:07 CREW DISPATCHER Est Patient Exp Problem - 80708 Domonique Schneider MD CPT-53181 [facility] 10:48:59 CREW DISPATCHER Est Patient Detailed - 79951 Elvia Conway D.O. CPT-68238 [facility] 22:02:17 CREW DISPATCHER Est Patient Exp Problem - 44116 Gina Meyer MD CPT-90038 [facility] 16:49:18 CDT Est Patient Exp Problem - 91412 Alexandra Mims MD CPT-58634 [facility] 09:19:02 CDT Est Patient Problem Focus - 03891 Kimmie Kevin MD CPT-84111 [facility] 12:22:45 CDT Est Patient Exp Problem - 52645 Elvia Conway D.O. CPT-72672 [facility] 21:35:59 CDT Est Patient Detailed - 66107 Gina Meyer MD CPT-00055 [facility] 05:32:58 CREW DISPATCHER Est Patient Exp Problem - 10578 Gina Meyer MD CPT-41169 [facility] 09:28:44 CDT Est Patient Exp Problem - 53168 Domonique Schneider MD CPT-80105 [facility] 15:19:34 CDT Est Patient Exp Problem - 84584 Nikunj Roberts MD CPT-75135 [facility] 16:26:32 CDT Est Patient Exp Problem - 31020 Alexandra Mims MD CPT-05777 [facility] 23:47:02 CDT Est Patient Exp Problem - 81277 Neil Rich MD CPT-58814 [facility] 10:00:30 CREW DISPATCHER Est Patient Exp Problem - 81421 Neil Rich MD CPT-51436 [facility] 15:53:24 CREW DISPATCHER Est Patient Exp Problem - 89368 Elvia Conway D.O. CPT-03518 [facility] 14:56:11 CREW DISPATCHER Est Patient Exp Problem - 99642 Wolfgang Wood DO CPT-67174 [facility] 10:56:43 CREW DISPATCHER Est Patient Exp Problem - 13673 Shereen Schaeffer MD CPT-29023 [facility] 09:35:50 CDT Est Patient Exp Problem - 00626 Wolfgang Wood DO CPT-90702 [facility] Procedures Code Procedure Name Date Entry Date Standard Description CPT-28551 Psychotherapy 30 (16-37*) min - 42645 (with patient and/or family member) 00:40:03 CDT CPT-74260 TDAP 10:32:57 CDT CPT-39609 Admin of Vaccine - Injection - 1 10:32:57 CDT CPT-83621 Urinalysis - Dip only - In House 18:08:36 CREW DISPATCHER CPT-99977 Psychotherapy 30 (16-37*) min - 25015 (with patient and/or family member) 16:38:39 CREW DISPATCHER CPT-72086 Psychotherapy 30 (16-37*) min - 67459 (with patient and/or family member) 13:44:53 CREW DISPATCHER CPT-72221 Diagnostic evaluation (no medical) - 31183 10:52:57 CREW DISPATCHER CPT-01492 INFLUENZA VACCINE QUADRIVALENT 3 YRS PLUS IM 16:49:18 CDT CPT-02590 Influenza - Adult - Injection 05:32:58 CREW DISPATCHER CPT-69833 Influenza - Adult - Injection 10:56:43 CREW DISPATCHER CPT-00385 Endometrial Biopsy 10:20:16 CREW DISPATCHER
[2018-04-18 18:39] VITALS: BP 127/89
--- NOTE | 2018-04-18 18:46 | NUR ---
PT ARRIVED VIA STRETCHER WITH X2 ASSIST. PT VS STABLE. C/O N/V AT THIS TIME. PAIN NOTED TO L SIDE OF ABD, RATED 8/10. NO KNOWN ALLERGIES. PT HAS BEEN NPO SINCE 0800 AT PREVIOUS FACILITY. IV ACCESS NOTD TO R HAND, NO SWELLING OR REDNESS OBSERVED. PT IS AAO X4.
[2018-04-18] MEDS ORDERED: HYDROCODONE/APAP 5MG-325MG TAB PO PRN (19:45)
[2018-04-18] MEDS ORDERED: MORPHINE SULFATE 2 MG/ML SYR 1ML IV PRN (19:45)
[2018-04-18] MEDS ORDERED: ACETAMINOPHEN 325 MG TAB PO PRN (19:45)
[2018-04-18] MEDS: SODIUM CHLORIDE 0.9% 1000ML 1,000 ML IV SCH (19:45)
[2018-04-18 20:00] VITALS: BP 98/53
--- NOTE | 2018-04-18 20:30 | NUR ---
COPY FOR MD'S ORDER PLACED IN THE CHART.
--- NOTE | 2018-04-18 20:30 | NUR ---
ORDERED ENTERED REPORTED BY PREVIOUS SHIFT
[2018-04-18] MEDS: CEFTRIAXONE SOD 1 GM/NS 50 ML 50 ML IV SCH (22:00)
[2018-04-18 22:51] VITALS: BP 127/89
[2018-04-18 23:00] VITALS: BP 116/62
[2018-04-18 23:25] VITALS: BP 127/89
[2018-04-19 04:00] VITALS: BP 124/60
[2018-04-19] MEDS: MORPHINE SULFATE INJ 4 MG/ML INJ 1ML IV PRN ×2 (05:02→15:25)
[2018-04-19] MEDS: SODIUM CHLORIDE 0.9% 1000ML 1,000 ML IV SCH ×2 (05:45→18:23)
[2018-04-19 06:22] LABS: BASOPHILS % 0.2 % (0.0-1.0); EOSINOPHILS # (AUTO) 0.1 (0.0-0.4); EOSINOPHILS % 1.1 % (0.0-6.0); HEMATOCRIT 38.2 % (34.2-44.1); HEMOGLOBIN 12.2 g/dL (12.0-16.0); LYMPHOCYTES % 19.1 % (18.0-39.1); MEAN CORPUSCULAR HEMOGLOBIN 26.3 pg (28-32); MEAN CORPUSCULAR HGB CONC 31.9 g/dL (31-35); MEAN CORPUSCULAR VOLUME 82.3 fL (81-99); MONOCYTES # (AUTO) 0.9 (0.2-0.8); MONOCYTES % 9.1 % (4.4-11.3); NEUTROPHILS # (AUTO) 7.2 (2.1-6.9); NEUTROPHILS % 70.1 % (38.7-80.0); PLATELET COUNT 261 x10e3/uL (140-360); RED BLOOD COUNT 4.64 x10e6/uL (3.6-5.1); RED CELL DISTRIBUTION WIDTH 14.6 % (11.7-14.4)
[2018-04-19 06:55] LABS: ALBUMIN 3.3 g/dL (3.5-5.0); ANION GAP 13.6 mmol/L (8-16); CALCIUM 8.6 mg/dL (8.4-10.2); CREATININE, SERUM 1.04 mg/dL (0.57-1.11); POTASSIUM 3.6 mmol/L (3.5-5.1)
--- NOTE | 2018-04-19 07:15 | NUR ---
PT AWAKE NO DISTRESS, NOTED NO C/O PAIN AT THIS TIME, PT ABLE TO MAKE NEEDS KNOWN, CALL LIGHT IN REACH.
--- NOTE | 2018-04-19 07:29 | Consultation ---
DATE OF CONSULTATION: April 19, 2018 UROLOGY CONSULTATION REASON FOR CONSULTATION: Obstructive ureterolithiasis. HISTORY OF PRESENT ILLNESS: Meme Urrutia is a 42-year-old woman with a previous history of urolithiasis. She has had lithotripsy in the past on both sides by Dr. Brock. She did not follow up with him due to the fact that she had lost her insurance during that time, and did not re-establish care. The patient had severe left-sided flank pain with nausea and vomiting. Reported to the emergency room at [place]. Workup was performed, but was then transferred here due to the fact that the hospital in [place] is out of network. The patient did report having some pink urine with gross hematuria. She has had urinary tract infections in the past, but that has not been an issue since. The patient has not had any fevers. She reports having stress type urinary incontinence, but not really urge type urinary incontinence. PAST MEDICAL AND SURGICAL HISTORY 1. 2, para 2 by vaginal delivery. 2. Status post cholecystectomy. 3. Status post tubal ligation. ALLERGIES: NONE KNOWN. CURRENT MEDICATIONS: Please refer to the MAR. SOCIAL HISTORY: The patient denies smoking, ethanol or drug use. 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 FAMILY HISTORY: Significant for kidney stones in the patient's sister. REVIEW OF SYSTEMS: As consistent above with the history of present illness and past medical history. Otherwise, negative for all other systems. PHYSICAL EXAMINATION GENERAL: A very pleasant healthy-appearing woman lying in bed in no apparent distress. VITALS: She is currently afebrile with vital signs stable. ABDOMEN: Soft, nondistended and nontender with mild right-sided costovertebral angle tenderness. Kidneys are not palpable. No hepatosplenomegaly. No obvious evidence of hernia. The patient is obese with a BMI of 40. For the remaining physical examination systems, please refer to the admission history and physical on the chart. LABORATORY STUDIES: From the outlying institution, reveal many gram-positive rods in the patient's urine on Gram stain. Creatinine is 0.8. White blood cell count is 9800, hemoglobin 12.7, and platelets 301,000. CT scan of the abdomen and pelvis shows multiple right nonobstructing renal stones and few nonobstructing left renal stones, and a 6-mm stone present in the left ureter with mild left hydroureteronephrosis and perinephric stranding. ASSESSMENT 1. Left ureterolithiasis. 2. Left hydronephrosis due to stone. 3. Left renal colic. 4. Nausea and vomiting, better. 5. Gross hematuria. 6. Urinary tract infections in the past. 7. Stress type urinary incontinence. 8. Family history of stone disease. 9. Obesity. 10. Bilateral nephrolithiasis. PLAN 1. Will order a urinalysis as well as urine culture to evaluate the urine due to possible urinary tract infection. 2. Will order KUB to see stone progress. 3. Should the patient fail to progress her stone, intervention with stent placement and probable stone procedure at a later time will be pursued. Thank you very much for involving us in the care of your patient. Will be happy to follow along with you, as well as an outpatient. Job#: [id number] SALLY
[2018-04-19 08:21] VITALS: BP 107/52
[2018-04-19] MEDS ORDERED: PROMETHAZINE 25MG/ NS 50ML (IV) IV PRN (10:45)
[2018-04-19 12:45] VITALS: BP 113/52
--- NOTE | 2018-04-19 13:01 | History and Physical ---
CHIEF COMPLAINT: Left flank pain. HISTORY OF PRESENT ILLNESS: This is a 42-year-old female with a history of morbid obesity who was transferred from [facility] due to left-sided flank pain. The patient reports that she began to have some nausea and vomiting that began on Wednesday evening. It progressively got worse on Wednesday as well. Yesterday, she noticed having some left-sided flank pain and went to the local ER in [place]. There she had CT with renal stone protocol that was consistent with a 6-mm renal stone in the left ureter that is obstructing. It is also leading to some underlying hydronephrosis as well. She was seen and evaluated at bedside on the medical floor, currently still having some pain. Has had some nausea this morning. REVIEW OF SYSTEMS PERTINENT POSITIVES: Left-sided flank pain, nausea, vomiting, dehydration, hematuria. PERTINENT NEGATIVES: Denies any chest pain, palpitations, dysuria, frequency, urgency, lightheadedness, dizziness, abdominal pain, headache, shortness of breath, cough, congestion, fever, or any other complaints. Rest of 14-point review of systems have been reviewed with the patient and are negative. ALLERGIES. NO KNOWN DRUG ALLERGIES. HOME MEDICATIONS: None. PAST MEDICAL HISTORY: Morbidly obese. SURGICAL HISTORY: Reports none. FAMILY HISTORY: Hypertension and diabetes. SOCIAL HISTORY: No drugs. No alcohol. Does not smoke. Good social support. VITAL SIGNS: Temperature 98.5, pulse 67, respiratory rate 18, blood pressure 107/52, pulse ox 97% on room air. LAB FINDINGS: White count 10.8, hemoglobin 12.3, hematocrit 38.2, platelets 261. Chemistries: Sodium 138, potassium 3.6, chloride 103, bicarb 23, anion gap 13, BUN 9, creatinine 1. Glucose is 118. Calcium is 8.6. AST 24, ALT 37, total bilirubin 0.6, total protein 6.5, albumin 3.3. MICROBIOLOGY: None. IMAGING: Imaging done at the outside facility that was a CT abdomen and pelvis with IV contrast showed a 6-mm stone in the proximal left ureter resulting in mild left hydronephrosis, asymmetric left perinephric stranding. There was also in addition bilateral nonobstructive nephrolithiasis and hepatic steatosis. PHYSICAL EXAMINATION GENERAL: Not in acute distress. Alert and oriented x3. Cooperative on examination. HEENT: Head is normocephalic, atraumatic. Eyes: Pupils are equal and reactive to light bilaterally. The extraocular movements are intact bilaterally. NECK: Supple. Good range of motion. Throat: No evidence of any erythema or exudates in the posterior pharynx. Has poor dentition. PULMONARY: Clear to auscultation bilaterally. No wheezing, no rales, no rhonchi, no crackles appreciated. CARDIOVASCULAR: Positive S1 and S2. No murmurs, rubs, or gallops appreciated. ABDOMEN: Soft. She is tender to palpation at the left flank area. Bowel sounds were present. MUSCULOSKELETAL: Strength is 5/5 throughout. No evidence of any musculoskeletal deficits on examination. No weakness appreciated. NEUROLOGICAL: Cranial nerves II through XII are grossly intact. No evidence of any neurological deficits on exam. SKIN: Intact. Warm to touch. Good cap refill. PSYCHIATRIC: Normal affect and mood. EXTREMITIES: No edema. Good range of motion throughout. IMPRESSION 1. Left ureteral obstructing renal nephrolithiasis with underlying mild left hydronephrosis. 2. Morbid obesity. 3. Nausea, vomiting, and dehydration. PLAN: At this time urology was consulted. They are going to consider conservative treatment for now. If not resolved tomorrow, will likely need cystoscopy with stent placement in the ureter to have the stone retrieved if possible. Continue with pain control. Will add Phenergan for nausea as well as Zofran. Her vitals are stable, and her labs are stable. Will get a.m. labs. Will continue with IV Rocephin. Hold anticoagulation due to the fact that she will likely have cystoscopy tomorrow and she is having underlying hematuria at this time. Job#: [id number]
--- NOTE | 2018-04-19 13:29 | NUR ---
SOCIAL WORK INITIAL ASSESSMENT Choke Reamer to bedside to discuss plan of care with patient/family. CM/SW role and care transitions discussed. Anticipated discharge plan discussed along with duration of care. CM/SW discussed patients right to make decisions in care. CM/SW work hours given. Patient lives: IN HOME WITH AND FAMILY Admit/Transfer: VIA ED POA/Emergency contact: TIERRA [phone] Current/Previous Home Health: NONE PCP/Follow-up Care: EMERSON TAPIA Current/Previous DME: NONE Other Services: NONE Employment Status: REP [employer] Areas of Concerns: NONE Referral Needs: NONE Education Needs: NONE IMM/SINGH given and signed (if applicable): NA Goal for discharge: RETURN HOME CM/SW left business card at the bedside with contact information. Name and number was also written on the patients whiteboard. Patient verbalized understanding of discussion. CM will follow-up with ongoing discharge and transition of care needs.
--- NOTE | 2018-04-19 14:00 | NUR ---
Visit made by the Spiritual Care Department Pastoral Visitor, Liberty Ambrosio. Pt out of room and no family at bedside. A card was left at the bedside to indicate a missed visit from a member of the Spiritual Care team and to inform the pt and family of the availability of a Tongue And Groove Machine Setter 24 hours a day/7 days a week. A granulator tender will follow up as able. CHERRI CAMEJO Tongue And Groove Machine Setter Spiritual Care Department O: [phone] Pager: [phone] ([phone] number calling from)
--- NOTE | 2018-04-19 14:05 | Diagnostic Imaging Report ---
Exam: KUB. Clinical History: Left renal calculus Comparison: None Findings: Frontal view of the abdomen demonstrates a nonobstructive bowel gas pattern with moderate retained stool. 0.8 cm stone adjacent to the lateral margin of the left L3 transverse process could be in the proximal left ureter.No acute bone abnormality. Curvilinear radiopaque density in the left pelvis could be residual contrast material in the distal left ureter. Impression: 0.8 cm stone adjacent to the lateral margin of the left L3 transverse process could be in the proximal left ureter. Signed by: Dr. Michael Sanabria M.D. on 04/19/2018 2:02 PM
[2018-04-19] MEDS: ONDANSETRON HCL INJ 2MG/ML 2ML 2 MG/ML VIAL IV PRN (15:25)
[2018-04-19 15:44] VITALS: BP 136/68
[2018-04-19 19:15] LABS: CLARITY,URINE CLEAR (CLEAR); COLOR,URINE YELLOW (YELLOW); KETONES,URINE NEGATIVE (NEGATIVE); LEUKOCYTE ESTERASE ,URINE NEGATIVE (NEGATIVE); NITRITE,URINE NEGATIVE (NEGATIVE); PROTEIN,URINE DIPSTICK NEGATIVE (NEGATIVE)
[2018-04-19 19:16] LABS: BACTERIA,URINE FEW /HPF; BILIRUBIN,URINE NEGATIVE (NEGATIVE); EPITHELIAL CELLS,URINE FEW /LPF; URINE UROBILINOGEN 0.2 mg/dL (0.2 - 1)
--- NOTE | 2018-04-19 19:20 | NUR ---
REPORT TAKEN FROM AM RN.WALKING ROUNDS DONE.STABLE CONDITION.
[2018-04-19 19:26] VITALS: BP 128/60
--- NOTE | 2018-04-19 19:43 | NUR ---
report given to oncoming nurse, for continued care.
[2018-04-19 20:00] VITALS: BP 128/60
[2018-04-19] MEDS: CEFTRIAXONE SOD 1 GM/NS 50 ML 50 ML IV SCH (21:00)
--- NOTE | 2018-04-19 22:00 | NUR ---
ASSESSMENT DONE.NO RESP.DISTRESS.NO PAIN VOICED.VOIDED.ADVISED NPO .IV FLUID INFUSING.BED ALARM ON.BED LOCKED AND IN LOWEST POSITION.PHONE AND CALL LIGHT WITHIN REACH.INSTRUCTED TO CALL FOR ASSISTANCE NEEDED.
[2018-04-20] VITALS (9 sets, daily range): BP systolic 96–123; BP diastolic 49–74
[2018-04-20] MEDS: SODIUM CHLORIDE 0.9% 1000ML 1,000 ML IV SCH ×3 (03:13→21:46)
[2018-04-20] MEDS: MORPHINE SULFATE INJ 4 MG/ML INJ 1ML IV PRN (03:20)
[2018-04-20] MEDS: ONDANSETRON HCL INJ 2MG/ML 2ML 2 MG/ML VIAL IV PRN (03:20)
[2018-04-20 06:11] LABS: BASOPHILS % 0.3 % (0.0-1.0); EOSINOPHILS # (AUTO) 0.1 (0.0-0.4); EOSINOPHILS % 1.4 % (0.0-6.0); HEMATOCRIT 36.8 % (34.2-44.1); HEMOGLOBIN 11.7 g/dL (12.0-16.0); LYMPHOCYTES # (AUTO) 1.8 (1.0-3.2); MEAN CORPUSCULAR HEMOGLOBIN 26.2 pg (28-32); MEAN CORPUSCULAR HGB CONC 31.8 g/dL (31-35); MEAN CORPUSCULAR VOLUME 82.3 fL (81-99); MONOCYTES # (AUTO) 0.9 (0.2-0.8); MONOCYTES % 8.9 % (4.4-11.3); NEUTROPHILS # (AUTO) 7.2 (2.1-6.9); NEUTROPHILS % 70.3 % (38.7-80.0); PLATELET COUNT 247 x10e3/uL (140-360); RED BLOOD COUNT 4.47 x10e6/uL (3.6-5.1); RED CELL DISTRIBUTION WIDTH 14.5 % (11.7-14.4)
--- NOTE | 2018-04-20 06:20 | NUR ---
KUB X RAY TAKEN.
[2018-04-20 06:37] LABS: ANION GAP 11.6 mmol/L (8-16); CALCIUM 8.8 mg/dL (8.4-10.2); CREATININE, SERUM 1.09 mg/dL (0.57-1.11); POTASSIUM 3.6 mmol/L (3.5-5.1)
--- NOTE | 2018-04-20 06:43 | Diagnostic Imaging Report ---
Exam: KUB. Clinical History: Follow-up stone progress Comparison: KUB 04/19/2018 Findings: Frontal view of the abdomen demonstrates a nonobstructive bowel gas pattern with moderate retained stool. Previously noted 0.8 cm calcification currently projects more inferiorly, at the level of the L3 inferior endplate, previously adjacent to the lateral margin of the left L3 transverse process. Additional two 0.3 cm punctate calcifications overlie the left renal silhouette, likely representing nonobstructing stones. Phleboliths project over the right pelvis. No acute bone abnormality. Impression: Slight progression of the suspected 0.8 cm ureteral stone, currently at the level of the L3 inferior endplate, previously adjacent to the lateral margin of the left L3 transverse process. Signed by: DR. Luan Hickey MD on 04/20/2018 6:40 AM
--- NOTE | 2018-04-20 06:50 | NUR ---
REPORT GIVEN TO THE ONCOMING RN.WALKING ROUNDS DONE.STABLE CONDITION.
--- NOTE | 2018-04-20 07:28 | NUR ---
Received patient, patient awake in bed at this time, no signs of distress. Bed in lowest position, wheels locked, side rails up x2, call light in reach. Will continue to monitor.
--- NOTE | 2018-04-20 09:30 | NUR ---
Patient A/O X3, even respirations unlabored on RA. Last BM Wednesday, bowel sounds active. Skin intact, no edema. Patient is ambulatory. Left hand 20 gauge IV with NS @ 75MLS/HR. Patient is NPO at this time for procedure in afternoon. No signs of distress, call light in reach. Will continue to monitor.
[2018-04-20] MEDS ORDERED: ACETAMINOPHEN 325 MG TAB PO PRN (10:15)
--- NOTE | 2018-04-20 11:46 | Progress Note ---
DATE: MEDICINE PROGRESS NOTE SUBJECTIVE: Patient states she is doing well. She still has some flank pain. Imaging studies show no progression in the renal stone. OBJECTIVE VITAL SIGNS: Temperature is 98.4, pulse 60, respiratory rate 16, blood pressure is 99/55, pulse ox 99% on room air. LAB FINDINGS: White count 10, hemoglobin 11.7, hematocrit 36.8, platelets of 247. Chemistries: Sodium 138, potassium 3. , chloride 104, bicarb 26, anion gap of 11, BUN is 6, creatinine is 1.09. Intact PTH is pending PTH is pending. Urinalysis negative. MICROBIOLOGY: Urine culture is no growth today, preliminary. IMAGING STUDIES: Abdominal x-ray shows slight progression of 0.8 cm ureteral stone. Currently at the level of the L3 inferior endplate, previously adjacent to the lateral margin of the left L3 transverse processes. PHYSICAL EXAMINATION GENERAL: Not in acute distress. Alert and oriented x3. Cooperative on examination. HEENT: Head is normocephalic and atraumatic. Eyes: Pupils are equal and reactive to light bilaterally. Extraocular movements intact bilaterally. NECK: Supple. Good range of motion. Throat with no evidence of any erythema or exudates in the posterior pharynx. Has poor dentition. PULMONARY: Clear to auscultation bilaterally. No wheezing. No rales. No rhonchi. No crackles appreciated. CARDIOVASCULAR: Positive S1 and S2. No murmurs, rubs or gallops appreciated. ABDOMEN: Soft, nondistended, nontender to palpation. Bowel sounds present. MUSCULOSKELETAL: Strength is 5/5 throughout. No evidence of any musculoskeletal deficit on examination. No weakness appreciated. NEUROLOGICAL: Cranial nerves II through XII are grossly intact. No evidence of any neurological deficits on exam. SKIN: Intact. Warm to touch. Good cap refill. PSYCHIATRIC: Normal affect and mood. EXTREMITIES: No edema. Good range of motion throughout. IMPRESSIONS 1. Left ureteral obstruction, renal nephrolithiasis with underlying mild hydronephrosis with very little progress in stone movement. 2. Morbid obesity. 3. Nausea, vomiting, and dehydration. 4. Headache. PLAN: At this time, KUB was reviewed. Will defer this to urology for the next plan of care. May need a cystoscopy with stent but will defer to urology. Continue with pain control, n.p.o. If she continues to have a headache, will give her a little bit of Tylenol with sips of water in the event she goes to cystoscopy later today. She will be n.p.o. for now. Continue with IV antibiotics. Hold anticoagulation due to possible cystoscopy later today or possibly tomorrow. Job#: [id number] OBED
[2018-04-20] MEDS ORDERED: ACETAMINOPHEN 1000 MG/100 ML IV ONE (12:00)
--- NOTE | 2018-04-20 12:32 | NUR ---
Patient sent to OR via wheelchair at this time, no signs of distress.
[2018-04-20] MEDS ORDERED: IOPAMIDOL 610MG/1ML 300 MG/ML VIAL IV ONE (13:15)
[2018-04-20] MEDS ORDERED: BELLADONNA/OPIUM 30 MG SUPP RC ONE (13:23)
--- NOTE | 2018-04-20 14:25 | NUR ---
Patient back from OR at this time, no signs of distress. Will continue to monitor.
[2018-04-20] MEDS: OXYBUTYNIN CHLORIDE 5 MG TAB PO SCH ×2 (14:33→21:46)
[2018-04-20] MEDS: PHENAZOPYRIDINE HCL 100 MG TAB PO SCH (17:10)
[2018-04-20] MEDS ORDERED: PROPOFOL IV EMULSION 10 MG/ML 20 ML VIAL ONE (17:52)
[2018-04-20] MEDS ORDERED: KETOROLAC TROMETHAMINE 30 MG/ML VIAL ONE (17:52)
[2018-04-20] MEDS ORDERED: ONDANSETRON HCL INJ 2MG/ML 2ML 2 MG/ML VIAL ONE (17:52)
[2018-04-20] MEDS ORDERED: DEXAMETHASONE SOD PHOS INJ 4 MG/ML VIAL ONE (17:52)
[2018-04-20] MEDS ORDERED: LIDOCAINE HCL 2% LOCAL INJ 5 ML SDV VIAL INJ ONE (17:52)
[2018-04-20] MEDS ORDERED: SEVOFLURANE INHAL SOLN 250 ML PEN BTL ONE (17:52)
[2018-04-20] MEDS ORDERED: FENTANYL CITRATE/PF 100MCG/2 ML INJ ONE (18:06)
[2018-04-20] MEDS ORDERED: MIDAZOLAM HCL 2 MG/2 ML VIAL ONE (18:06)
--- NOTE | 2018-04-20 19:00 | NUR ---
REPORT TAKEN FROM AM RN.WALKING ROUNDS DONE.LYEING IN THE BED.STABLE CONDITION.NO PAIN VOICED.
[2018-04-20] MEDS: CEFTRIAXONE SOD 1 GM/NS 50 ML 50 ML IV SCH (21:45)
--- NOTE | 2018-04-20 22:00 | NUR ---
NEW IV STARTED TO LFA#22G.IV FLUID RUNNING .NO PAIN VOICED.NO RESP.DISTRESS.VOIDED ORANGE COLOURED URINE .BED LOCKED AND IN LOWEST POSITION.PHONE AND CALL LIGHT WITHIN REACH.INSTRUCTED TO CALL FOR ASSISTANCE NEEDED .
[2018-04-21] VITALS: BP 93/52
[2018-04-21 04:00] VITALS: BP 95/50
[2018-04-21 05:46] LABS: BASOPHILS % 0.3 % (0.0-1.0); EOSINOPHILS # (AUTO) 0.1 (0.0-0.4); EOSINOPHILS % 1.3 % (0.0-6.0); HEMATOCRIT 34.9 % (34.2-44.1); HEMOGLOBIN 10.8 g/dL (12.0-16.0); LYMPHOCYTES # (AUTO) 2.3 (1.0-3.2); LYMPHOCYTES % 21.8 % (18.0-39.1); MEAN CORPUSCULAR HEMOGLOBIN 25.8 pg (28-32); MEAN CORPUSCULAR HGB CONC 30.9 g/dL (31-35); MEAN CORPUSCULAR VOLUME 83.3 fL (81-99); MONOCYTES # (AUTO) 0.9 (0.2-0.8); MONOCYTES % 8.9 % (4.4-11.3); NEUTROPHILS # (AUTO) 6.9 (2.1-6.9); NEUTROPHILS % 67.2 % (38.7-80.0); PLATELET COUNT 267 x10e3/uL (140-360); RED BLOOD COUNT 4.19 x10e6/uL (3.6-5.1); RED CELL DISTRIBUTION WIDTH 14.3 % (11.7-14.4)
[2018-04-21 06:05] LABS: ANION GAP 11.9 mmol/L (8-16); BLOOD UREA NITROGEN 12 mg/dL (7-26); BUN/CREATININE RATIO 15 (6-25); CALCIUM 8.8 mg/dL (8.4-10.2); CARBON DIOXIDE 25 mmol/L (22-29); CHLORIDE 105 mmol/L (98-107); CREATININE, SERUM 0.78 mg/dL (0.57-1.11); EST GLOMERULAR FILTRATION RATE > 60 ML/MIN (60-); GLUCOSE 98 mg/dL (74-118); POTASSIUM 3.9 mmol/L (3.5-5.1); SODIUM 138 mmol/L (136-145)
--- NOTE | 2018-04-21 06:50 | NUR ---
REPORT GIVEN TO THE ONCOMING RN.WALKING ROUNDS DONE.STABLE CONDITION.
--- NOTE | 2018-04-21 07:17 | NUR ---
Received patient. Patient resting in bed at this time, no signs of distress. Bed in lowest position, wheels locked, side rails up x2, call light in reach. Will continue to monitor.
[2018-04-21] MEDS: PHENAZOPYRIDINE HCL 100 MG TAB PO SCH ×2 (08:16→13:57)
[2018-04-21] MEDS: OXYBUTYNIN CHLORIDE 5 MG TAB PO SCH (08:16)
[2018-04-21 08:20] VITALS: BP 101/60
--- NOTE | 2018-04-21 09:05 | NUR ---
Patient A/O X3, even respirations on RA. Patient has not had a BM since admission, bowel sounds active. Cystoscopy procedure yesterday, urine is orange at this time. No pain or discomforts. Left FA 22 gauge IV with NS@ 75mls/hr. Patient is ambulatory. Skin intact, no edema. Call light in reach, will continue to monitor.
[2018-04-21] MEDS ORDERED: TYLENOL WITH C1 EACH PO (09:52)
[2018-04-21 12:11] VITALS: BP 107/53
[2018-04-21] MEDS ORDERED: CEFUROXIME250 MG PO (12:20)
[2018-04-21] MEDS ORDERED: DITROPAN XL5 MG PO (12:22)
--- NOTE | 2018-04-21 13:01 | Discharge Summary ---
FINAL DISCHARGE DIAGNOSES 1. Left-sided flank pain, status post cystoscopy with left ureteral stent placement. 2. Left-sided hydronephrosis secondary to renal calculi. 3. Morbid obesity. CONSULTANTS: Urology. VITAL SIGNS: Temperature 96.7, pulse 70, respiratory rate is 20, blood pressure 101/60, pulse oximetry 99% on room air. LAB FINDINGS: Show white count 10.3, hemoglobin 10.8, hematocrit 34.5, platelets of 267. Chemistries: sodium 138, potassium 3.9, chloride 105, bicarb 25, anion gap 11, BUN is 12, creatinine 0.78, glucose is 98, calcium is 8.8. Several intact PTH is still pending. Albumin is 2.3. Urinalysis 2+ blood, 6 to 10 RBCs consistent with ureteral stone. MICROBIOLOGY: Urine cultures were negative x2. HOSPITAL COURSE: This is a 42-year-old female who came in as a transfer from [facility] due to in-network benefits from her insurance company. Comes in with left-sided flank pain, found to have a left-sided obstructing ureteral stone. While here, urology was consulted. A KUB shows evidence of no progression of 0.8-cm ureteral stone found in the left ureter. Patient underwent cystoscopy on 04/20/2018 with a left ureteral stent placement. Stone was not able to be retrieved due to the size. Patient did well and she was on IV antibiotics while here in the hospital. Urine culture was found to be negative. Per urology, the patient has been cleared for discharge home on oral antibiotics for 2 weeks as well as pain control and oxybutynin. Patient will need to follow up in the office in 1 to 2 weeks for a lithotripsy in the event the stone does not come out. Patient verbalized understanding. On discharge, vital signs stable, labs reviewed and stable. The patient was seen and evaluated, examined thoroughly on the day of discharge with no other complaints. Patient verbalized understanding and agrees with plan of care, to follow up accordingly as an outpatient with the primary care physician in 1 week and urologist in 1 to 2 weeks' time. Patient was tolerating diet well. MEDICATIONS: See med reconciliation form. CONDITION: Stable. DIET: Heart healthy. In the event of any worsening symptoms, patient advised to come back to the ED for further evaluation. Discharge summary took greater than 35 minutes. MARICRUZ BALDERAS MD Job#: [id number] TA
--- NOTE | 2018-04-21 13:10 | NUR ---
Removed patients IV, catheter tip intact and pressure dressing applied.
--- NOTE | 2018-04-21 13:55 | NUR ---
Patient discharged from facility. Patient gathered all personal belongings, discharge instructions, and follow up information. No distress when leaving facility.
== END 2018-04-21 13:55 | disposition home or self-care (01) | DRG 660 ==
LOC: MED/SURG 18:28
PROVIDERS: ADMIT Internal Medicine; ATTEND Internal Medicine
PROC: BT141ZZ Fluoroscopy of Kidneys, Ureters and Bladder using Low Osmolar Contrast (ICD-10-PCS; 2018-04-20)
PROC: 0T778DZ Dilation of Left Ureter with Intraluminal Device, Via Natural or Artificial Opening Endoscopic (ICD-10-PCS; principal; 2018-04-20 14:30)
DX: N13.2 Hydronephrosis with renal and ureteral calculous obstruction (principal); Z68.41 Body mass index [BMI] 40.0-44.9, adult; R31.0 Gross hematuria; E66.01 Morbid (severe) obesity due to excess calories; K76.0 Fatty (change of) liver, not elsewhere classified; E86.0 Dehydration; N81.10 Cystocele, unspecified; N39.0 Urinary tract infection, site not specified; R51 Headache
CPT/HCPCS: 36415; 74018; 74420; 80048; 80053; 81001; 81025; 83970; 84550; 85025; 87086; C2617; J0696; J1100; J1885; J2001; J2250; J2270; J2405; J7030

== ENCOUNTER → 2018-11-25 | Day surgery (SDC) | payer OTHER ==
--- NOTE | 2018-11-23 09:22 | Diagnostic Imaging Report ---
EXAM: ABDOMEN-1VIEW (KUB) DATE: 11/23/2018 8:36 AM INDICATION: Renal stones, preoperative evaluation COMPARISON: 04/20/2018 FINDINGS: There has been interval placement of a left-sided double-J ureteral stent. There is a subcentimeter stone identified projecting over the superior pole the left kidney. There are additional subcentimeter stones identified projecting over the superior and inferior poles of the right kidney. Phleboliths are noted within the pelvis. There is a 8 mm calcification identified adjacent to the distal left ureteral stent which may represent a ureteral stone versus adjacent phlebolith. Bowel gas pattern is nonobstructive. No intraperitoneal free air is appreciated. No acute osseous abnormalities identified. IMPRESSION: Subcentimeter bilateral renal stones. Additional, 8 mm calcification identified adjacent to the distal aspect of the left ureteral stent which may represent a ureteral stone. Signed by: Dr. Bentley Ford MD on 11/23/2018 9:19 AM
[~2018-11-25] MED LIST: B&O 60MG R/S 60 MG SUPP PR ONE; CEFTRIAXONE SOD 1 GM/NS 50 ML 50 ML IV ONE; CEFUROXIME250 MG PO; DEXAMETHASONE SOD PHOS INJ 4 MG/ML VIAL ONE; DITROPAN XL5 MG PO; FENTANYL CITRATE/PF 100MCG/2 ML INJ ONE; FLUCONAZOLE 200 MG/100 ML 100 ML IV ONE; GENTAMICIN 80MG/NS 100 ML 200 ML IV ONE; IOPAMIDOL 610MG/1ML 300 MG/ML VIAL IV ONE; LIDOCAINE HCL 2% LOCAL INJ 5 ML SDV VIAL INJ ONE; MIDAZOLAM HCL 2 MG/2 ML VIAL ONE; ONDANSETRON HCL INJ 2MG/ML 2ML 2 MG/ML VIAL ONE; PROPOFOL IV EMULSION 10 MG/ML 20 ML VIAL ONE; SEVOFLURANE INHAL SOLN 250 ML PEN BTL ONE; TOVIAZ8 MG PO; TYLENOL WITH C1 EACH PO
--- OUTSIDE RECORDS SUMMARY | 2018-11-25 11:12 | XMS REPORT ---
Author Author [facility] Address Unknown Phone Unavailable Care Team Providers Care Fire Systems Inspector Name Role Phone ANITA BELTRÁN Unavailable Unavailable Chapincito BALDERAS Unavailable Unavailable Problems This patient has no known problems. Allergies, Adverse Reactions, Alerts This patient has no known allergies or adverse reactions. Medications This patient has no known medications. Results Test Description Test Time Test Comments Text Results Atomic Results Result Comments ABDOMEN-1VIEW (KU) 2018-11-23 09:12:00 [place] [address] Patient Name: HALI ARCHER MR #: [id number] : 1975 Age/Sex: 43/F Req #: [id number] Adm Physician: Ordered by: ANITA BELTRÁN MD Report #: [id number] Location: OR Room/Bed: Procedure: [id number] DX/ABDOMEN-1VIEW (KUB) Exam Date: 11/23/18 Exam Time: 0840 REPORT STATUS: Signed EXAM: ABDOMEN-1VIEW (KUB) DATE: 11/23/2018 8:36 AM INDICATION: Renal stones, preoperative evaluation COMPARISON: 04/20/2018 FINDINGS: There has been interval placement of a left-sided double-J ureteral stent. There is a subcentimeter stone identified projecting over the superior pole the left kidney. There are additional subcentimeter stones identified projecting over the superior and inferior poles of the right kidney. Phleboliths are noted within the pelvis. There is a 8 mm calcification identified adjacent to the distal left ureteral stent which may represent a ureteral stone versus adjacent phlebolith. Bowel gas pattern is nonobstructive. No intraperitoneal free air is appreciated. No acute osseous abnormalities identified. IMPRESSION: Subcentimeter bilateral renal stones. Additional, 8 mm calcification identified adjacent to the distal aspect of the left ureteral stent which may represent a ureteral stone. Signed by: Dr. Bentley Ford MD on 11/23/2018 9:19 AM Dictated By: BENTLEY FORD MD 8 Transcribed By: SHAKIRA on 11/23/18918 COPY TO: ANITA BELTRÁN MD ABDOMEN-1VIEW (KUB) 2018-04-20 06:37:00 [place] [address] Patient Name: HALI ARCHER MR #: [id number] : 1975 Age/Sex: 42/F Req #: [id number] Adm Physician: MARICRUZ BALDERAS MD Ordered by: ANITA BELTRÁN MD Report #: [id number] Location: MED/SURG Room/Bed: [facility] Procedure: [id number] DX/ABDOMEN-1VIEW (KUB) Exam Date: 04/20/18 Exam Time: 0625 REPORT STATUS: Signed Exam: KUB. Clinical History: Follow-up stone pro evan Comparison: KUB 04/19/2018 Findings: Frontal view of the abdomen demonstrates a nonobstructive bowel gas pattern with moderate retained stool. Previously noted 0.8 cm calcification currently projects more inferiorly, at the level of the L3 inferior endplate, previously adjacent to the lateral margin of the left L3 transverse process. Additional two 0.3 cm punctate calcifications overlie the left renal silhouette, likely representing nonobstructing stones. Phleboliths project over the right pelvis. No acute bone abnormality. Impression: Slight progression of the suspected 0.8 cm ureteral stone, currently at the level of the L3 inferior endplate, previously adjacent to the lateral margin of the left L3 transverse process. Signed by: DR. Luan Brown MD on 04/20/2018 6:40 AM Dictated By: LUAN BROWN MD 9 Transcribed By: SHAKIRA on 04/20/18639 COPY TO: ANITA BELTRÁN MD ABDOMEN-1VIEW (KUB) 2018-04-19 14:00:00 [place] [address] Patient Name: HALI ARCHER MR #: [id number] : 1975 Age/Sex: 42/F Req #: [id number] Adm Physician: MARICRUZ BALDERAS MD Ordered by: ANITA BELTRÁN MD Report #: [id number] Location: MED/SURG Room/Bed: [facility] Procedure: [id number] DX/ABDOMEN-1VIEW (KUB) Exam Date: 04/19/18 Exam Time: 1340 REPORT STATUS: Signed Exam: KUB. Clinical History: Left renal calcu heidi Comparison: None Findings: Frontal view of the abdomen demonstrates a nonobstructive bowel gas pattern with moderate retained stool. 0.8 cm stone adjacent to the lateral margin of the left L3 transverse process could be in the proximal left ureter.No acute bone abnormality. Curvilinear radiopaque density in the left pelvis could be residual contrast material in the distal left ureter. Impression: 0.8 cm stone adjacent to the lateral margin of the left L3 transverse process could be in the proximal left ureter. Signed by: Dr. Michael Sanabria M.D. on 04/19/2018 2:02 PM Dictated By: MICHALE SANABRIA MD, MD 1402 Transcribed By: SHAKIRA on 04/19/18 140 COPY TO: ANITA BELTRÁN MD
--- OUTSIDE RECORDS SUMMARY | 2018-11-25 11:12 | XMS REPORT | Clinical Summary ---
Author Author [facility] Organization [facility] Address Unknown Phone Unavailable Care Team Providers Care Chimney Sweeper Name Role Phone Leodan Leung MD PCP Allergies No Known Allergies Medications End Date Status Medication Sig Dispensed Refills Start Date 07/23/2018 Discontinued (Med List Cleanup) sertraline (ZOLOFT) 100 0 MG tablet 7 07/23/2018 Discontinued (Med List Cleanup) ondansetron ODT 0 (ZOFRAN-ODT) 4 MG 7 disintegrating tablet 07/23/2018 Discontinued (Med List Cleanup) ASPIRIN/ACETAMINOPHEN/CAF Take by 0 FEINE (EXCEDRIN MIGRAINE mouth. ORAL) 07/27/2018 Discontinued (Reorder) PROAIR HFA 90 Inhale 1 puff 0 mcg/actuation inhaler every 4 8 (four) hours as needed. 07/23/2018 Discontinued (Med List Cleanup) cholecalciferol, vitamin TK 1 C PO Q 2 D3, 50,000 unit capsule WEEK 8 07/23/2018 Discontinued (Med List Cleanup) methocarbamol (ROBAXIN) TK 1 T PO 0 750 MG tablet BID 8 08/22/2018 Discontinued (Stop Taking at Discharge) brompheniramine-pseudoeph Take 10 mL by 0 -DM 2-30-10 mg/5 mL syrup mouth every 6 9 (six) hours as needed. 07/27/2018 Discontinued (Stop Taking at Discharge) clindamycin (CLEOCIN) 300 Take 1 0 MG capsule capsule by 9 mouth every 6 (six) hours. FOR 10 DAYS 07/27/2018 Discontinued (Stop Taking at Discharge) predniSONE (DELTASONE) 20 Take 1 tablet 0 201 mg tablet by mouth 2 9 (two) times a day. FOR 10 DAYS 09/01/2018 Discontinued fesoterodine (TOVIAZ) 4 Take 4 mg by 0 mg tablet extended mouth daily. release 24 hr 07/27/2018 Discontinued benzonatate (TESSALON) Take 1 30 capsule 0 200 MG capsule capsule (200 9 mg total) by mouth 3 (three) times a day as needed for cough for up to 30 days. 07/27/2018 Discontinued (Reorder) PROAIR HFA 90 Inhale 1 puff 18 g 0 mcg/actuation inhaler every 4 9 (four) hours as needed for shortness of breath for up to 30 days. 07/27/2018 Discontinued (Reorder) predniSONE (DELTASONE) 10 40mg 30 tablet 0 201 mg tablet pack [id number],30m 9 g Xdaily X3days, 20mg Xdaily X3days, 10mgXdaily X3days 07/27/2018 Discontinued (Reorder) levoFLOXacin (LEVAQUIN) Take 1 tablet 5 tablet 0 500 MG tablet (500 mg 9 total) by mouth daily for 5 days. 08/01/2018 levoFLOXacin (LEVAQUIN) Take 1 tablet 5 tablet 0 500 MG tablet (500 mg 9 total) by mouth daily for 5 days. 08/22/2018 Discontinued (Stop Taking at Discharge) predniSONE (DELTASONE) 10 40mg 30 tablet 0 201 mg tablet pack [id number],30m 9 g Xdaily X3days, 20mg Xdaily X3days, 10mgXdaily X3days 08/26/2018 PROAIR HFA 90 Inhale 1 puff 18 g 0 mcg/actuation inhaler every 4 9 (four) hours as needed for shortness of breath for up to 30 days. 08/26/2018 benzonatate (TESSALON) Take 1 30 capsule 0 200 MG capsule capsule (200 9 mg total) by mouth 3 (three) times a day as needed for cough for up to 30 days. 08/22/2018 Discontinued (Stop Taking at Discharge) sulfamethoxazole-trimetho Take 1 tablet 0 prim (BACTRIM DS) 800-160 by mouth 2 mg per tablet (two) times a day. 08/22/2018 Discontinued (Stop Taking at Discharge) clindamycin (CLEOCIN) 300 Take 300 mg 0 MG capsule by mouth 4 (four) times a day. 09/01/2018 Discontinued amoxicillin-pot Take 1 tablet 20 tablet 0 clavulanate (AUGMENTIN) by mouth 2 9 875-125 mg per tablet (two) times a day for 10 days. 09/01/2018 Discontinued ascorbic acid, vitamin C, Take 1 tablet 30 tablet 0 (VITAMIN C) 500 MG tablet (500 mg 9 total) by mouth daily for 30 days. 09/01/2018 Discontinued ferrous sulfate 325 (65 Take 1 tablet 60 tablet 0 FE) MG tablet (325 mg 9 total) by mouth 2 (two) times a day with meals for 30 days. 09/01/2018 Discontinued acetaminophen-codeine Take 1 tablet 0 (TYLENOL WITH CODEINE #3) by mouth 300-30 mg per tablet every 4 (four) hours as needed for moderate pain. Active Problems Problem Noted Date Pneumonia 08/08/2018 Obstructive chronic bronchitis with acute bronchitis 08/08/2018 Overview: Added automatically from request for surgery [id number] Emp[facility] 08/08/2018 Overview: Added automatically from request for surgery [id number] [facility] 07/23/2018 Encounters Care Team Description Date Type Specialty Leodan Leung MD Uric acid nephrolithiasis (Primary Dx) 10/20/2018 Transcribe Access Orders Leodan Leung MD Hematuria, unspecified type 10/08/2018 Hospital Radiology Encounter Leodan Leung MD Hematuria, unspecified type (Primary Dx); Neurogenic dysfunction of the urinary bladder 10/05/2018 Transcribe Access Orders Monica Arrington MD Shortness of breath (Primary Dx) 09/30/2018 Transcribe Access Orders Talia Carter MD 08/31/2018 Documentation Cardiovascular Louis Taylor Jr., MD [facility] ([facility]) (Primary Dx) 08/29/2018 Office Visit Cardiovascular Camlia Curiel RN Follow-up (communication with patient) 08/24/2018 Documentation Cardiovascular Camila Curiel RN Follow-up (communication with patient) 08/23/2018 Documentation Cardiovascular Jose Alfredo Carney RN 08/20/2018 Telephone Critical Care Medicine Pierre Arcos MD 08/16/2018 Anesthesia General Surgery Event Louis Taylor Jr., MD THORACOSCOPY, Converted to thoracotomy, decortication 08/16/2018 Surgery General Surgery Monica Arrington MD BRONCHOSCOPY 08/12/2018 Surgery Gastroenterology Leodan Leung MD Obstructive chronic bronchitis with acute bronchitis (HCC) (Primary Dx); Empyema (HCC) 08/08/2018 [facility] General Internal Medicine - Encounter 08/22/2018 Leodan Leung MD Shortness of breath 08/04/2018 Hospital Radiology Encounter Leodan Leung MD Shortness of breath (Primary Dx) 08/04/2018 Transcribe Access Orders Belgica Vernon RN 07/27/2018 Patient Quality Outreach Shorty Herrera MD Yerramadha, Muralidhar Reddy, MD Community acquired pneumonia of right lung, unspecified part of lung (Primary Dx); Hypoxia; Acute respiratory failure with hypoxia (HCC) 07/23/2018 [facility] General Internal Medicine - Encounter 07/27/2018 Juni Gomez MD Renal colic (Primary Dx); Intractable pain; Hydronephrosis, unspecified hydronephrosis type 04/18/2018 Emergency Emergency Medicine after 11/24/2017 Family History Medical History Relation Name Comments Heart disease Father No Known Problems Mother Colon cancer Paternal Aunt Kidney cancer Paternal Grandmother Heart disease Sister Relation Name Status Comments Father Alive Mother Alive Paternal Aunt Paternal Grandmother Sister Social History Date Tobacco Use Types Packs/Day Years Used Never Smoker Smokeless Tobacco: Never Used Drinks/Week oz/Week Comments Alcohol Use No Alcohol Habits Answer Date Recorded How [...] travel history available. Last Filed Vital Signs Reading Time Taken Comments Vital Sign 111/55 09/01/2018 11:57 AM CDT Blood Pressure 87 09/01/2018 11:57 AM CDT Pulse 36.7 C (98 F) 08/22/2018 3:33 PM CDT Temperature 12 09/01/2018 11:57 AM CDT Respiratory Rate 98% 09/01/2018 11:57 AM CDT Oxygen Saturation - - Inhaled Oxygen Concentration 104 kg (230 lb) 09/01/2018 11:57 AM CDT Weight 162.6 cm (5' 4") 09/01/2018 11:57 AM CDT Height 39.48 09/01/2018 11:57 AM CDT Body Mass Index Plan of Treatment Health Maintenance Due Date Last Done Comments INFLUENZA VACCINE 10/06/2018 CERVICAL CANCER SCREENING 08/10/2021 08/10/2018 Procedures Comments Procedure Name Priority Date/Time Associated Diagnosis XR ABDOMEN 1 VW Routine 10/20/2018 Uric acid nephrolithiasis 4:[address] ABDOMEN PELVIS W WO Routine 10/08/2018 Hematuria, unspecified CONTRAST 11:03 AM CDT type XR CHEST 2 VW Routine 09/30/2018 Shortness of breath 5:17 PM CDT XR CHEST 2 VW Routine 08/22/2018 8:45 AM CDT IRON LEVEL Routine 08/22/2018 5:21 AM CDT ESTIMATED GFR Routine 08/20/2018 8:35 AM CDT MAGNESIUM LEVEL Routine 08/20/2018 8:35 AM CDT HC COMPLETE BLD COUNT Routine 08/20/2018 W/AUTO DIFF 8:35 AM CDT COMPREHENSIVE METABOLIC Routine 08/20/2018 PANEL 8:35 AM CDT XR CHEST 1 VW PORTABLE Routine 08/20/2018 7:45 AM CDT XR CHEST 1 VW PORTABLE Routine 08/19/2018 6:51 AM CDT MANUAL DIFFERENTIAL Routine 08/19/2018 3:45 AM CDT IONIZED CALCIUM Routine 08/19/2018 3:45 AM CDT ESTIMATED GFR Routine 08/19/2018 3:45 AM CDT PHOSPHORUS LEVEL Routine 08/19/2018 3:45 AM CDT MAGNESIUM LEVEL Routine 08/19/2018 3:45 AM CDT CBC WITH PLATELET AND Routine 08/19/2018 DIFFERENTIAL 3:45 AM CDT BASIC METABOLIC PANEL Routine 08/19/2018 3:45 AM CDT XR CHEST 1 VW PORTABLE Routine 08/18/2018 6:40 AM CDT MANUAL DIFFERENTIAL Routine 08/18/2018 4:21 AM CDT IONIZED CALCIUM Routine 08/18/2018 4:21 AM CDT ESTIMATED GFR Routine 08/18/2018 4:21 AM CDT PHOSPHORUS LEVEL Routine 08/18/2018 4:21 AM CDT MAGNESIUM LEVEL Routine 08/18/2018 4:21 AM CDT CBC WITH PLATELET AND Routine 08/18/2018 DIFFERENTIAL 4:21 AM CDT BASIC METABOLIC PANEL Routine 08/18/2018 4:21 AM CDT XR CHEST 1 VW PORTABLE Routine 08/17/2018 6:39 AM CDT MANUAL DIFFERENTIAL Routine 08/17/2018 4:40 AM CDT ESTIMATED GFR Routine 08/17/2018 4:40 AM CDT PHOSPHORUS LEVEL Routine 08/17/2018 4:40 AM CDT MAGNESIUM LEVEL Routine 08/17/2018 4:40 AM CDT CBC WITH PLATELET AND Routine 08/17/2018 DIFFERENTIAL 4:40 AM CDT BASIC METABOLIC PANEL Routine 08/17/2018 4:40 AM CDT POC GLUCOSE Routine 08/16/2018 5:18 PM CDT SURGICAL PATHOLOGY Routine 08/16/2018 REQUEST 11:06 AM CDT XR CHEST 1 VW PORTABLE STAT 08/16/2018 10:58 AM CDT ESTIMATED GFR STAT 08/16/2018 10:35 AM CDT CBC HEMOGRAM STAT 08/16/2018 10:35 AM CDT BASIC METABOLIC PANEL STAT 08/16/2018 10:35 AM CDT ARTERIAL BLOOD GAS STAT 08/16/2018 10:35 AM CDT AFB STAIN Timed 08/16/2018 8:33 AM CDT FUNGUS SMEAR Timed 08/16/2018 8:33 AM CDT GRAM STAIN Timed 08/16/2018 8:33 AM CDT AFB CULTURE Timed 08/16/2018 Empyema (HCC) 8:33 AM CDT AEROBIC CULTURE Timed 08/16/2018 Empyema (HCC) 8:33 AM CDT FUNGUS CULTURE Timed 08/16/2018 Empyema (HCC) 8:33 AM CDT ANAEROBIC CULTURE Timed 08/16/2018 Empyema (HCC) 8:33 AM CDT OH AN ELECTIVE Routine 08/16/2018 ENDOTRACHEAL AIRWAY 8:07 AM CDT Procedure Note - Pierre Arcos MD - 08/16/2018 8:07 AM CDT Airway Date/Time: 08/16/2018 7:15 AM Performed by: Pierre Arcos MD Authorized by: Pierre Arcos MD Location: OR Urgency: Elective Difficult Airway: No Anesthesio logist: Pierre Arcos MD Preoxygena maribel with 100% O2: Yes Mask Ventilatio n: Easy mask Final Airway Type: Endotrache al airway Final Endotrache al Airway: ETT - double lumen left Cuffed: Yes Technique Used: Direct laryngosco py Devices/Me thods Used in Placement: Fiberopti c Insertion Site: Oral Blade Type: Hortensia Laryngosco pe Blade/Vide olaryngosc ope Blade Size: 3 ETT Double Lumen (fr): 37 Cuff at minimum occlusion pressure: Yes Measured from: Lips Placement Verified by: CO2 detection Laryngosc opic view: Grade I - full view of glottis Rapid Sequence Induction (RSI): No Modified RSI: No Number of Attempts at Approach: 1 SMEAR REVIEW Routine 08/16/2018 4:57 AM CDT ESTIMATED GFR Routine 08/16/2018 4:57 AM CDT BASIC METABOLIC PANEL Routine 08/16/2018 4:57 AM CDT HC COMPLETE BLD COUNT Routine 08/16/2018 W/AUTO DIFF 4:57 AM CDT TYPE AND SCREEN Routine 08/15/2018 11:[address] CHEST WO CONTRAST Routine 08/15/2018 8:28 AM CDT MANUAL DIFFERENTIAL Timed 08/13/2018 5:05 PM CDT CBC WITH PLATELET AND Timed 08/13/2018 DIFFERENTIAL 5:05 PM CDT ESTIMATED GFR Timed 08/13/2018 4:00 PM CDT COMPREHENSIVE METABOLIC Timed 08/13/2018 PANEL 4:00 PM CDT POTASSIUM LEVEL Timed 08/13/2018 4:00 PM CDT XR CHEST 1 VW Routine 08/13/2018 8:46 AM CDT ESTIMATED GFR Routine 08/13/2018 4:39 AM CDT BASIC METABOLIC PANEL Routine 08/13/2018 4:39 AM CDT HC COMPLETE BLD COUNT Routine 08/13/2018 W/AUTO DIFF 4:39 AM CDT GRAM STAIN Routine 08/12/2018 1:46 PM CDT RESPIRATORY CULTURE Routine 08/12/2018 1:46 PM CDT BRONCHOSCOPY 08/12/2018 Obstructive chronic 1:35 PM CDT bronchitis with acute bronchitis (HCC) MANUAL DIFFERENTIAL Routine 08/12/2018 4:41 AM CDT ESTIMATED GFR Routine 08/12/2018 4:41 AM CDT COMPREHENSIVE METABOLIC Routine 08/12/2018 PANEL 4:41 AM CDT CBC WITH PLATELET AND Routine 08/12/2018 DIFFERENTIAL 4:41 AM CDT HC COMPLETE BLD COUNT Routine 08/11/2018 W/AUTO DIFF 4:55 AM CDT ESTIMATED GFR Routine 08/11/2018 4:55 AM CDT HEPATIC FUNCTION PANEL Routine 08/11/2018 4:55 AM CDT BASIC METABOLIC PANEL Routine 08/11/2018 4:55 AM CDT US THORACENTESIS WITH STAT 08/10/2018 IMAGING 2:41 PM CDT XR CHEST 1 VW PORTABLE STAT 08/10/2018 2:39 PM CDT GLUCOSE LEVEL, MISC FLUID Routine 08/10/2018 2:15 PM CDT LDH, MISC FLUID Routine 08/10/2018 2:15 PM CDT PROTEIN, MISC FLUID Routine 08/10/2018 2:15 PM CDT CELL COUNT AND Routine 08/10/2018 DIFFERENTIAL, BODY FLUID 2:15 PM CDT ANAEROBIC CULTURE Routine 08/10/2018 2:15 PM CDT AEROBIC CULTURE Routine 08/10/2018 2:15 PM CDT GRAM STAIN Routine 08/10/2018 2:15 PM CDT PROTHROMBIN TIME WITH INR STAT 08/10/2018 1:15 PM CDT PARTIAL THROMBOPLASTIN STAT 08/10/2018 TIME (PTT) 1:15 PM CDT CYTOLOGY Routine 08/10/2018 (NON-GYNECOLOGICAL) 8:38 AM CDT REQUEST HEPATITIS ACUTE PANEL Routine 08/10/2018 5:20 AM CDT ESTIMATED GFR Routine 08/10/2018 5:20 AM CDT HC COMPLETE BLD COUNT Routine 08/10/2018 W/AUTO DIFF 5:20 AM CDT COMPREHENSIVE METABOLIC Routine 08/10/2018 PANEL 5:20 AM CDT B NATRIURETIC PEPTIDE Routine 08/09/2018 5:[address] CHEST WO CONTRAST STAT 08/09/2018 5:40 PM CDT ECHOCARDIOGRAM 2D Routine 08/09/2018 COMPLETE W MMODE SPECTRAL 4:57 PM CDT COLOR DOPPLER (26699) GRAM STAIN Routine 08/09/2018 11:20 AM CDT SPUTUM CULTURE Routine 08/09/2018 11:20 AM CDT HC COMPLETE BLD COUNT Routine 08/09/2018 W/AUTO DIFF 6:06 AM CDT ESTIMATED GFR Routine 08/09/2018 6:06 AM CDT TB IN-TUBE QUANTIFERON Routine 08/09/2018 PLUS 6:06 AM CDT COMPREHENSIVE METABOLIC Routine 08/09/2018 PANEL 6:06 AM CDT XR CHEST 2 VW Routine 08/08/2018 11:43 PM CDT XR CHEST 2 VW Routine 08/04/2018 Shortness of breath 5:32 PM CDT ESTIMATED GFR Routine 07/27/2018 6:35 AM CDT HC COMPLETE BLD COUNT Routine 07/27/2018 W/AUTO DIFF 6:35 AM CDT BASIC METABOLIC PANEL Routine 07/27/2018 6:35 AM CDT MRSA SCREEN CULTURE Routine 07/27/2018 5:46 AM CDT GRAM STAIN Routine 07/26/2018 10:56 PM CDT SPUTUM CULTURE Routine 07/26/2018 10:56 PM CDT XR CHEST 1 VW PORTABLE Routine 07/26/2018 6:32 AM CDT ESTIMATED GFR Routine 07/26/2018 5:30 AM CDT HC COMPLETE BLD COUNT Routine 07/26/2018 W/AUTO DIFF 5:30 AM CDT BASIC METABOLIC PANEL Routine 07/26/2018 5:30 AM CDT TROPONIN, I-STAT Routine 07/26/2018 1:20 AM CDT TROPONIN Routine 07/26/2018 1:20 AM CDT ECG 12-LEAD Routine 07/26/2018 12:24 AM CDT ESTIMATED GFR Routine 07/25/2018 5:35 AM CDT HC COMPLETE BLD COUNT Routine 07/25/2018 W/AUTO DIFF 5:35 AM CDT BASIC METABOLIC PANEL Routine 07/25/2018 5:35 AM CDT GRAM STAIN Routine 07/24/2018 5:59 PM CDT URINE CULTURE Routine 07/24/2018 5:59 PM CDT RESPIRATORY PATHOGEN Routine 07/24/2018 PANEL 12:20 PM CDT STREPTOCOCCUS PNEUMONIAE Routine 07/24/2018 URINARY ANTIGEN 11:50 AM CDT LEGIONELLA URINARY Routine 07/24/2018 ANTIGEN 11:50 AM CDT ESTIMATED GFR Routine 07/24/2018 6:00 AM CDT COMPREHENSIVE METABOLIC Routine 07/24/2018 PANEL 6:00 AM CDT HC COMPLETE BLD COUNT Routine 07/24/2018 W/AUTO DIFF 6:00 AM CDT TROPONIN Timed 07/23/2018 9:[address] ANGIOGRAM PE CHEST STAT 07/23/2018 6:24 PM CDT ESTIMATED GFR Routine 07/23/2018 4:23 PM CDT COMPREHENSIVE METABOLIC Routine 07/23/2018 PANEL 4:23 PM CDT XR CHEST 1 VW PORTABLE STAT 07/23/2018 4:12 PM CDT B NATRIURETIC PEPTIDE STAT 07/23/2018 3:57 PM CDT HC COMPLETE BLD COUNT STAT 07/23/2018 W/AUTO DIFF 3:57 PM CDT TROPONIN STAT 07/23/2018 3:57 PM CDT ECG ED PRELIMINARY Routine 07/23/2018 INTERPRETATION 3:45 PM CDT ECG 12-LEAD STAT 07/23/2018 3:[address] ABDOMEN PELVIS W STAT 04/18/2018 CONTRAST 12:45 PM INSTRUMENT MAKER APPRENTICE GRAM STAIN STAT 04/18/2018 9:58 AM INSTRUMENT MAKER APPRENTICE URINE CULTURE STAT 04/18/2018 9:58 AM INSTRUMENT MAKER APPRENTICE ESTIMATED GFR STAT 04/18/2018 9:46 AM INSTRUMENT MAKER APPRENTICE LIPASE LEVEL STAT 04/18/2018 9:46 AM INSTRUMENT MAKER APPRENTICE COMPREHENSIVE METABOLIC STAT 04/18/2018 PANEL 9:46 AM INSTRUMENT MAKER APPRENTICE HC COMPLETE BLD COUNT STAT 04/18/2018 W/AUTO DIFF 9:46 AM INSTRUMENT MAKER APPRENTICE HCG QUALITATIVE, URINE STAT 04/18/2018 SCREEN 8:52 AM INSTRUMENT MAKER APPRENTICE URINALYSIS SCREEN AND STAT 04/18/2018 MICROSCOPY, WITH REFLEX 8:52 AM INSTRUMENT MAKER APPRENTICE TO CULTURE after 11/24/2017 Results * XR Abdomen 1 Vw (10/20/2018 4:55 PM CDT) Specimen Narrative Performed At EXAM: [facility] XR ABDOMEN 1 VW INDICATION: N20.0 Calculus of kidney, n20.0 COMPARISON: CT abdomen pelvis dated 10/08/2018. IMPRESSION: Minimal linear opacity right midlung, discoid atelectasis versus thickening minor fissure. Surgical clips right upper quadrant. Left ureteral double-J stent with proximal pigtail projecting over the renal pelvis and distal pigtail projecting over the bladder. 8 mm x 5 mm calculus projecting over the distal left ureter. Position is not significant change since prior CT. Phlebolith right pelvis. No evidence of obstruction, pneumatosis, portal venous gas, pneumoperitoneum. [id number] Procedure Note Interface, Radiology Results Incoming - 10/20/2018 5:33 PM CDT EXAM: XR ABDOMEN 1 VW INDICATION: N20.0 Calculus of kidney, n20.0 COMPARISON: CT abdomen pelvis dated 10/08/2018. IMPRESSION: Minimal linear opacity right midlung, discoid atelectasis versus thickening minor fissure. Surgical clips right upper quadrant. Left ureteral double-J stent with proximal pigtail projecting over the renal pelvis and distal pigtail projecting over the bladder. 8 mm x 5 mm calculus projecting over the distal left ureter. Position is not significant change since prior CT. Phlebolith right pelvis. No evidence of obstruction, pneumatosis, portal venous gas, pneumoperitoneum. [facility]-[id number] Performing Organization Address City/State/Zipcode Phone Number [facility] [id number] [place] [address] * CT Abdomen Pelvis W Wo Contrast (10/08/2018 11:03 AM CDT) Specimen Narrative Performed At EXAMINATION:CT ABDOMEN PELVIS W WO CONTRAST [facility] CLINICAL HISTORY:R31.9 Hematuriaunspecified, HEMATURIA TECHNIQUE:CT of the abdomen and pelvis was performed without contrast utilizing renal stone protocol. Subsequently, postcontrast CT of the abdomen and pelvis was obtained with multiphase renal mass and CT urogram protocol. Sagittal and coronal computerized reformatted images were also obtained. CT imaging was performed with iterative reconstruction techniques and/or automated exposure control to reduce radiation dose. COMPARISON:04/18/2018 FINDINGS: There is a 6 mm stone in the distal left ureter. Left ureteral stent is in place. There is mild left ureteral thickening. No hydronephrosis or perinephric stranding. Multiple small calyceal stones are scattered throughout both kidneys measuring up to 3 mm. Bladder is nondistended. There is a very thin curvilinear hyperdensity in the bladder lumen at the posterior midline, adjacent to the distal pigtail of the ureteral stent (series 2 image 207). This is seen both on precontrast and nephrographic phases. No suspicious renal lesion. An 8mm hyperdense focus in the left kidney lower pole may be a hemorrhagic cyst. Another 6 mm lesion in the right midpole is also seen. These are too small to definitively characterize. Liver shows moderate fatty infiltration. Gallbladder is absent. Normal pancreas and spleen. No suspicious bowel thickening or dilatation. No free fluid. Normal appendix. Mildly elevated right hemidiaphragm with overlying basilar atelectasis. IMPRESSION: 1. Left ureteral stent in place with a 6 mm stone in the distal left ureter. No hydronephrosis or perinephric stranding. 2.Multiple smaller intrarenal stones in both kidneys. 3.Thin hyperdensity in the bladder adjacent to ureteral stent pigtail may be calcification but unusual morphology for stone or encrustation. [id number] Procedure Note Interface, Radiology Results Incoming - 10/08/2018 11:49 AM CDT EXAMINATION: CT ABDOMEN PELVIS W WO CONTRAST CLINICAL HISTORY: R31.9 Hematuria unspecified, HEMATURIA TECHNIQUE: CT of the abdomen and pelvis was performed without contrast utilizing renal stone protocol. Subsequently, postcontrast CT of the abdomen and pelvis was obtained with multiphase renal mass and CT urogram protocol. Sagittal and coronal computerized reformatted images were also obtained. CT imaging was performed with iterative reconstruction techniques and/or automated exposure control to reduce radiation dose. COMPARISON: 04/18/2018 FINDINGS: There is a 6 mm stone in the distal left ureter. Left ureteral stent is in place. There is mild left ureteral thickening. No hydronephrosis or perinephric stranding. Multiple small calyceal stones are scattered throughout both kidneys measuring up to 3 mm. Bladder is nondistended. There is a very thin curvilinear hyperdensity in the bladder lumen at the posterior midline, adjacent to the distal pigtail of the ureteral stent (series 2 image 207). This is seen both on precontrast and nephrographic phases. No suspicious renal lesion. An 8mm hyperdense focus in the left kidney lower pole may be a hemorrhagic cyst. Another 6 mm lesion in the right midpole is also seen. These are too small to definitively characterize. Liver shows moderate fatty infiltration. Gallbladder is absent. Normal pancreas and spleen. No suspicious bowel thickening or dilatation. No free fluid. Normal appendix. Mildly elevated right hemidiaphragm with overlying basilar atelectasis. IMPRESSION: 1. Left ureteral stent in place with a 6 mm stone in the distal left ureter. No hydronephrosis or perinephric stranding. 2. Multiple smaller intrarenal stones in both kidneys. 3. Thin hyperdensity in the bladder adjacent to ureteral stent pigtail may be calcification but unusual morphology for stone or encrustation. [id number] Performing Organization Address City/State/Zipcode Phone Number [facility] [address] [place] [address] * XR Chest 2 Vw (09/30/2018 5:17 PM CDT) Only the most recent of 4 results within the time period is included. Specimen Narrative Performed At EXAMINATION:XR CHEST 2 VW [facility] CLINICAL HISTORY: 43 years [id number] Shortness of breath, UNKNOWN COMPARISON:08/22/2018 IMPRESSION: 1.Right hemidiaphragmatic elevation is seen. Right midlung atelectasis is present. Left lung is clear. Cardiomediastinal slices within normal limits. Degenerative changes of the spine are present. [facility]-[id number] Procedure Note Hm Interface, Radiology Results Incoming - 09/30/2018 5:21 PM CDT EXAMINATION: XR CHEST 2 VW CLINICAL HISTORY: 43 years Female R06.02 Shortness of breath, UNKNOWN COMPARISON: 08/22/2018 IMPRESSION: 1. Right hemidiaphragmatic elevation is seen. Right midlung atelectasis is present. Left lung is clear. Cardiomediastinal slices within normal limits. Degenerative changes of the spine are present. [facility]-[id number] Performing Organization Address [facility]/Zipcode Phone Number [facility] [phone] [place] [address] * Iron level (08/22/2018 5:21 AM CDT) Pathologist [facility] Iron level 36 (L) 37 - 148 ug/dL [facility] Specimen Blood Performing Organization Address [facility] Phone Number [facility] [address] [place] [address] PATH[address] * Estimated GFR (08/20/2018 8:35 AM CDT) Only the most recent of 18 results within the time period is included. Pathologist [facility] Estimated GFR >=90 mL/min/1.73 m2 MICHAEL Comment: [facility] G1 >=90 Normal or high G2 60-89Mildly decreased [id number] Mildly to moderately decreased B6o09-20 Moderately to severely decreased G4 15-29Severely decreased G5 <15Kidney failure The eGFR was calculated using the Chronic Kidney Disease Epidemiology Collaboration (CKD-EPI) equation. Interpretation is based on recommendations of the National Kidney Foundation-Kidney Disease Outcomes Quality Initiative (NKF-KDOQI) published in 2014. Specimen Plasma specimen Performing Organization Address [facility] Phone Number [facility] [place] [place] [address] PATHOLOGY AND [facility] MEDICINE [address] * CBC with platelet and differential (08/20/2018 8:35 AM CDT) Only the most recent of 17 results within the time period is included. WBC 10.9 4.2 - 11.0 k/uL [facility] RBC 3.12 (L) 4.04 - 5.86 m/uL [facility] HGB 8.1 (L) 11.5 - 15.3 g/dL [facility] HCT 27.2 (L) 34.0 - 45.0 % [facility] MCV 87.2 80.0 - 98.0 fL [facility] MCH 26.0 (L) 27.0 - 34.0 pg [facility] MCHC 29.8 (L) 31.5 - 36.5 g/dL [facility] RDW - SD 47.9 37.0 - 51.0 fL [facility] MPV 9.1 7.4 - 10.4 fL [facility] Platelet count 367 150 - 400 k/uL [facility] Nucleated RBC 0.70 /100 WBC [facility] Neutrophils 64.4 36.0 - 66.0 % [facility] Lymphocytes 20.1 (L) 24.0 - 44.0 % [facility] Monocytes 9.2 (H) 0.0 - 6.0 % [facility] Eosinophils 1.1 0.0 - 6.0 % [facility] Basophils 0.3 0.0 - 1.2 % [facility] Immature 4.9 (H) 0.0 - 1.0 % MICHAEL granulocytes [facility] Specimen Blood Performing Organization Address City/State/Zipcode Phone Number [facility] [address] PATHOLOGY AND GENOMIC MEDICINE [facility] [address] [facility] [address] HOSPITAL * Magnesium level (08/20/2018 8:35 AM CDT) Only the most recent of 4 results within the time period is included. Magnesium 2.00 1.60 - 2.60 mg/dL [facility] Specimen Plasma specimen Performing Organization Address City/State/Zipcode Phone Number [facility] DE[facility] OF [address] [place] [address] PATHOLOGY AND GENOMIC MEDICINE [address] * Comprehensive metabolic panel (08/20/2018 8:35 AM CDT) Only the most recent of 8 results within the time period is included. Sodium 142 135 - 150 mEq/L [facility] Potassium 4.1 3.5 - 5.0 mEq/L [facility] Chloride 103 98 - 112 mEq/L [facility] CO2 30 24 - 31 mmol/L [facility] Anion gap 9@ANIO 7 - 15 mEq/L [facility] BUN <4 (L) 7 - 18 mg/dL [facility] Creatinine 0.60 0.50 - 0.90 mg/dL [facility] Glucose 115 (H) 65 - 100 mg/dL [facility] Calcium 9.3 8.3 - 10.2 mg/dL [facility] Protein 6.5 6.3 - 8.3 g/dL [facility] Albumin 2.3 (L) 3.5 - 5.0 g/dL [facility] A/G ratio 0.5 (L) 0.7 - 3.8 [facility] Alkaline 89 0 - 104 U/L MICHAEL phosphatase [facility] AST 21 10 - 35 U/L [facility] ALT 29 5 - 50 U/L [facility] Total bilirubin 0.3 0.2 - 1.2 mg/dL [facility] Specimen Plasma specimen Performing Organization Address City/State/Zipcode Phone Number [facility] DEPARTMENT OF [address] [place] [address] PATHOLOGY AND GENOMIC MEDICINE [address] * XR Chest 1 Vw Portable (08/20/2018 7:45 AM CDT) Only the most recent of 8 results within the time period is included. Specimen Narrative Performed At EXAMINATION: XR CHEST 1 VW PORTABLE [facility] INDICATION: ICU ptstable with no clinical status changes COMPARISON: 08/19/2018 IMPRESSION: Right chest tubes have been removed. There appears to be a trace right apical pneumothorax, but no mediastinal shift. Persistent low lung volumes, particularly on the right, with slightly improved right lung atelectasis and airspace disease. Unchanged cardiomediastinal silhouette and osseous structures. Surgical clips overlie the right upper quadrant. [facility]-[id number] Procedure Note Hm Interface, Radiology Results Incoming - 08/20/2018 8:31 AM CDT EXAMINATION: XR CHEST 1 VW PORTABLE INDICATION: ICU pt stable with no clinical status changes COMPARISON: 08/19/2018 IMPRESSION: Right chest tubes have been removed. There appears to be a trace right apical pneumothorax, but no mediastinal shift. Persistent low lung volumes, particularly on the right, with slightly improved right lung atelectasis and airspace disease. Unchanged cardiomediastinal silhouette and osseous structures. Surgical clips overlie the right upper quadrant. [facility]-[id number] Performing Organization Address City/State/Zipcode Phone Number [facility] [address] [place] [address] * Manual differential (08/19/2018 3:45 AM CDT) Only the most recent of 5 results within the time period is included. Manual PERFORMED MICHAEL differential [facility] Neutrophils 67.0 (H) 36.0 - 66.0 % [facility] Lymphocytes 27.0 24.0 - 44.0 % [facility] Monocytes 5.0 0.0 - 6.0 % [facility] Eosinophils 0.0 0.0 - 6.0 % [facility] Basophils 0.0 0.0 - 1.2 % [facility] Metamyelocytes 0 0 - 1 % [facility] Myelocytes 1 0 - 1 % [facility] Promyelocytes 0 0 - 1 % [facility] Platelet slide Chaparro adequate MICHAEL review [facility] Toxic Slight MICHAEL granulation [facility] Anisocytosis slight [facility] Polychromasia slight [facility] Enlarged Occasional MICHAEL platelets [facility] Specimen Performing Organization Address City/[facility] Phone Number [facility] DE[facility] [address] [place] [address] PATHOLOGY AND GENOMIC MEDICINE [address] * Phosphorus level (08/19/2018 3:45 AM CDT) Only the most recent of 3 results within the time period is included. Phosphorus 4.1 2.4 - 4.5 mg/dL [facility] Specimen Plasma specimen Performing Organization Address City/[facility] [place] [address] PATHOLOGY AND GENOMIC MEDICINE [address] * Ionized calcium (08/19/2018 3:45 AM CDT) Only the most recent of 2 results within the time period is included. pH 7.39 [facility] Ionized calcium 1.13 1.11 - 1.32 mmol/L [facility] Specimen Plasma specimen Performing Organization Address City/[facility] [place] [address] PATHOLOGY AND GENOMIC MEDICINE [address] * Basic metabolic panel (08/19/2018 3:45 AM CDT) Only the most recent of 10 results within the time period is included. Sodium 139 135 - 150 mEq/L [facility] Potassium 3.2 (L) 3.5 - 5.0 mEq/L [facility] Chloride 98 98 - 112 mEq/L [facility] CO2 32 (H) 24 - 31 mmol/L [facility] Anion gap 9@ANIO 7 - 15 mEq/L [facility] BUN <4 (L) 7 - 18 mg/dL [facility] Creatinine 0.60 0.50 - 0.90 mg/dL [facility] Glucose 126 (H) 65 - 100 mg/dL [facility] Calcium 8.8 8.3 - 10.2 mg/dL [facility] Specimen Plasma specimen Performing Organization Address City/State/Zipcode Phone Number [facility] DEPARTMENT OF [address] [phone] PATHOLOGY [place] [address] HOSPITAL * POC glucose (08/16/2018 5:18 PM CDT) [facility] POC glucose 118 (H) 65 - 100 mg/dL MICHAEL Comment: [facility] Meter ID: [id number] [place] [employer] Supervisor: Nataliejulito Maher [facility] Specimen Performing Organization Address City/State/Zipcode Phone Number [facility] DEPARTMENT OF [address] [place], [place] [id number] PATHOLOGY [place] [address] HOSPITAL * Surgical pathology request (08/16/2018 11:06 AM CDT) Pathologist [facility] DEPART[facility] OF PATHOLOGY AND GENOMIC MEDICINE Surgical See link below for PDF Lab [facility] DEPARTMENT pathology Report OF PATHOLOGY report AND GENOMIC MEDICINE Result status This is Final Report for [facility] DEPART[facility] [id number] OF PATHOLOGY AND GENOMIC MEDICINE Specimen Performing Organization Address City/[facility] Phone Number [facility] [place] [place] [address] PATHOLOGY AND GENOMIC MEDICINE * CBC hemogram (08/16/2018 10:35 AM CDT) [facility] WBC 19.5 (H) 4.2 - 11.0 k/uL [facility] RBC 3.91 (L) 4.04 - 5.86 m/uL [facility] HGB 10.1 (L) 11.5 - 15.3 g/dL [facility] HCT 33.8 (L) 34.0 - 45.0 % [facility] MCV 86.4 80.0 - 98.0 fL [facility] MCH 25.8 (L) 27.0 - 34.0 pg [facility] MCHC 29.9 (L) 31.5 - 36.5 g/dL [facility] RDW - SD 44.9 37.0 - 51.0 fL [facility] MPV 9.2 7.4 - 10.4 fL [facility] Platelet count 419 (H) 150 - 400 k/uL [facility] Nucleated RBC 0.00 /100 WBC [facility] Specimen Blood Performing Organization Address City/State/Zipcode Phone Number [facility] DEPARTMENT OF [address] [place] [address] PATHOLOGY AND GENOMIC MEDICINE [address] * Arterial blood gas (08/16/2018 10:35 AM CDT) Surgical Garment Assembly Supervisor TNRO [facility] Collection site R FEMROAL A-LINE [facility] O2 therapy 10L SIMPLE MASK [facility] Respiratory 22 bpm MICHAEL rate [facility] pH, arterial 7.338 (L) 7.350 - 7.450 units [facility] pCO2, arterial 58.3 (H) 35.0 - 45.0 mmHg [facility] pO2, arterial 74.6 (L) 80.0 - 90.0 mmHg [facility] O2 saturation, 93.9 (L) 95.0 - 100.0 % MICHAEL arterial [facility] Base excess, 5.4 mEq/L [facility] Bicarbonate 31.2 (H) 21.0 - 28.0 mEq/L [facility] O2 content 13.9 VOL% [facility] FiO2, inspired 21.0 % MICHAEL O2% [facility] Carboxyhemoglob 0.8 0.0 - 1.4 % MICHAEL in Comment: [facility] Reference Ranges: [place] Carboxyhemoglobin [facility] Non smoker: 0.0 - 2.0% Smoker: 2.1 - 5.0% Heavy smoker: 5.1 - 9% Methemoglobin 0.1 0.0 - 1.0 % [facility] Hemoglobin, 10.5 (L) 12.0 - 16.0 g/dL MICHAEL blood gas [facility] pO2, A-a 10.2 mmHg [facility] Specimen Blood Performing Organization Address City/[facility] Phone Number [facility] DEPARTMENT OF [address] [place] [address] PATHOLOGY AND GENOMIC MEDICINE [facility] [address] [place] [address] HOSPITAL * Fungus smear (08/16/2018 8:33 AM CDT) Fungus smear No fungi observed. MICHAEL Comment: [facility] Specimen Information HOSPITAL Specimen Source: Pleural fluid Specimen Site: Pleural cavity Specimen Pleural fluid - Pleural cavity Performing Organization Address [facility] Phone Number [facility] [place] [address] PATHOLOGY AND GENOMIC MEDICINE [address] * AFB culture (08/16/2018 8:33 AM CDT) AFB culture No growth after 6 weeks of MICHAEL isolate incubation. [facility] Comment: HOSPITAL Specimen Information Specimen Source: Pleural fluid Specimen Site: Pleural cavity Specimen Pleural fluid - Pleural cavity Performing Organization Address [facility] Phone Number [facility] DEPARTMENT OF [address] [place] [address] PATHOLOGY AND GENOMIC MEDICINE [address] * Aerobic culture (08/16/2018 8:33 AM CDT) Only the most recent of 2 results within the time period is included. Aerobic culture Streptococcus anginosus group MICHAEL isolate Recovered in Broth only: [facility] susceptibility to follow HOSPITAL (A) Comment: Specimen Information Specimen Source: Pleural fluid Specimen Site: Pleural cavity Specimen Pleural fluid - Pleural cavity Antibiotic Method Susceptibility Organism Clindamycin >2 mcg/mL: Resistant Streptococcus anginosus group Ceftriaxone 0.25 mcg/mL: Susceptible Streptococcus anginosus group Cefotaxime 0.25 mcg/mL: Susceptible Streptococcus anginosus group Cefepime 0.5 mcg/mL: Susceptible Streptococcus anginosus group Penicillin G 0.125 mcg/mL: Susceptible Streptococcus anginosus group Vancomycin 1 mcg/mL: Susceptible Streptococcus anginosus group Performing Organization Address City/[facility] Phone Number [facility] DEPARTMENT OF [address] [place] [address] PATHOLOGY AND [facility] MEDICINE MICHAEL [facility] [address] [place] [address] HOSPITAL * Gram stain (08/16/2018 8:33 AM CDT) Only the most recent of 7 results within the time period is included. Gram stain Few WBC's ARTEAGA isolate No organisms seen [facility] Comment: HOSPITAL Specimen Information Specimen Source: Pleural fluid Specimen Site: Pleural cavity Specimen Pleural fluid - Pleural cavity Performing Organization Address [facility] Phone Number [facility] DEPARTMENT OF [address] [place] [address] PATHOLOGY AND [facility] MEDICINE MICHAEL [facility] [address] [place] [address] HOSPITAL * AFB stain (08/16/2018 8:33 AM CDT) AFB stain No acid fast bacilli (AFB) MICHAEL seen. [facility] Comment: HOSPITAL Specimen Information Specimen Source: Pleural fluid Specimen Site: Pleural cavity Specimen Pleural fluid - Pleural cavity Performing Organization Address [facility] Phone Number [facility] DEPARTMENT OF [address] [place] [address] PATHOLOGY AND [facility] MEDICINE MICHAEL [facility] [address] [place] [address] HOSPITAL * Fungus culture (08/16/2018 8:33 AM CDT) Fungus culture No growth after 4 weeks of MICHAEL isolate incubation. [facility] Comment: HOSPITAL Specimen Information Specimen Source: Pleural fluid Specimen Site: Pleural cavity Specimen Pleural fluid - Pleural cavity Performing Organization Address [facility] Phone Number [facility] DEPARTMENT OF [address] [place] [address] PATHOLOGY AND [facility] MEDICINE MICHAEL [facility] [address] [place] [address] HOSPITAL * Anaerobic culture (08/16/2018 8:33 AM CDT) Only the most recent of 2 results within the time period is included. Anaerobic No anaerobic organisms MICHAEL culture isolate isolated. [facility] Comment: HOSPITAL Specimen Information Specimen Source: Pleural fluid Specimen Site: Pleural cavity Specimen Pleural fluid - Pleural cavity Performing Organization Address City/[facility] Phone Number [facility] DEPARTMENT OF [address] [place] [address] [place] [address] PATHOLOGY AND GENOMIC MEDICINE [facility] [address] [place] [address] HOSPITAL * Smear review (08/16/2018 4:57 AM CDT) Platelet slide Chaparro adequate MICHAEL review [facility] Anisocytosis slight [facility] Enlarged Occasional MICHAEL platelets [facility] Toxic Slight MICHAEL granulation [facility] Neutrophils, Slight MICHAEL vacuolated [facility] Specimen Performing Organization Address City/State/[facility] Phone Number [facility] DEPARTMENT OF [address] [place] [address] PATHOLOGY AND GENOMIC MEDICINE [facility] [address] [place] [address] HOSPITAL * Type and screen (08/15/2018 11:08 AM CDT) ABO grouping O [facility] Rh type POS [facility] Antibody screen NEG MICHAEL (gel) [facility] Specimen Blood Performing Organization Address City/[facility] Phone Number [facility] DE[facility]MENT OF [address] [phone] PATHOLOGY AND GENOMIC MEDICINE [facility] [address] [place] [address] HOSPITAL * CT Chest Wo Contrast (08/15/2018 8:28 AM CDT) Only the most recent of 2 results within the time period is included. Specimen Narrative Performed At EXAMINATION: CT CHEST WO CONTRAST HM [facility] CLINICAL HISTORY: f u empyema TECHNIQUE:Multiple axial CT images of the chest are obtained without the use of intravenous contrast. The lack of intravenous contrast reduces the sensitivity of the sensitivity of detecting solid organ disease and evaluating vasculature. Sagittal and coronal 3-D reformatted images were obtained. CT scans are performed using radiation dose reduction techniques.Technical factors are evaluated and adjusted to ensure appropriate moderation of exposure.Automated dose management technology is applied to adjust radiation exposure while achieving a diagnostic quality image. COMPARISON: 08/09/2018 FINDINGS: Visualized portions of the thyroid gland are unremarkable. The thoracic aorta has no aneurysmal dilatation. The heart has no pericardial effusion. The gallbladder has been previously removed. The visualized portions of the liver and spleen are unremarkable. The adrenal glands demonstrate no abnormality.2 The left lung zone demonstrates dependent atelectasis at the left lung base. A trace left pleural effusion is present. There is persistent diffuse consolidation seen in the right lower lobe. There there are now air-fluid levels seen within this focal consolidation. A pleural effusion is present. These findings are consistent with empyema. IMPRESSION: 1. Persistent dense consolidation is seen in the right lower lobe. 2. There has been interval development of air-fluid levels and is dense consolidation. These findings are consistent with empyema. 3. A right pleural effusion is present. 4. There is mild atelectasis seen at the right base. [id number] Procedure Note Hm Interface, Radiology Results Incoming - 08/15/2018 8:38 AM CDT EXAMINATION: CT CHEST WO CONTRAST CLINICAL HISTORY: f u empyema TECHNIQUE: Multiple axial CT images of the chest are obtained without the use of intravenous contrast. The lack of intravenous contrast reduces the sensitivity of the sensitivity of detecting solid organ disease and evaluating vasculature. Sagittal and coronal 3-D reformatted images were obtained. CT scans are performed using radiation dose reduction techniques. Technical factors are evaluated and adjusted to ensure appropriate moderation of exposure. Automated dose management technology is applied to adjust radiation exposure while achieving a diagnostic quality image. COMPARISON: 08/09/2018 FINDINGS: Visualized portions of the thyroid gland are unremarkable. The thoracic aorta has no aneurysmal dilatation. The heart has no pericardial effusion. The gallbladder has been previously removed. The visualized portions of the liver and spleen are unremarkable. The adrenal glands demonstrate no abnormality.2 The left lung zone demonstrates dependent atelectasis at the left lung base. A trace left pleural effusion is present. There is persistent diffuse consolidation seen in the right lower lobe. There there are now air-fluid levels seen within this focal consolidation. A pleural effusion is present. These findings are consistent with empyema. IMPRESSION: 1. Persistent dense consolidation is seen in the right lower lobe. 2. There has been interval development of air-fluid levels and is dense consolidation. These findings are consistent with empyema. 3. A right pleural effusion is present. 4. There is mild atelectasis seen at the right base. [id number] Performing Organization Address City/State/Zipcode Phone Number [facility] [address] [place] [address] * Potassium level (08/13/2018 4:00 PM CDT) Pathologist [facility] Potassium 3.8 3.5 - 5.0 mEq/L [facility] Specimen Plasma specimen Performing Organization Address City/State/Zipcode Phone Number [facility] DE[facility] OF [address] [place] [address] PATHOLOGY AND GENOMIC MEDICINE [facility] [address] [place] [address] HOSPITAL * XR Chest 1 Vw (08/13/2018 8:46 AM CDT) Specimen Narrative Performed At EXAMINATION:XR CHEST 1 VW [facility] CLINICAL HISTORY:Acute resp [id number] years old, CAD riskhighasymptomatic, pneumonia COMPARISON:08/10/2018 IMPRESSION: Airspace consolidation throughout the right mid to lower lung has improved considerably since prior. Mild left basilar atelectasis or infiltrate is new. Otherwise stable [id number] Procedure Note Interface, Radiology Results Incoming - 08/13/2018 9:09 AM CDT EXAMINATION: XR CHEST 1 VW CLINICAL HISTORY: Acute resp illness 41 years old, CAD risk high asymptomatic, pneumonia COMPARISON: 08/10/2018 IMPRESSION: Airspace consolidation throughout the right mid to lower lung has improved considerably since prior. Mild left basilar atelectasis or infiltrate is new. Otherwise stable [facility]-[id number] Performing Organization Address City/[facility]/Zipcode Phone Number [facility] [address] [place] [address] * Respiratory culture (08/12/2018 1:46 PM CDT) [facility] Respiratory Normal oral sigifredo isolated. MICHAEL culture isolate Comment: [facility] Specimen Information HOSPITAL Specimen Source: Bronchial Washing Specimen Site: Right and left lobes Specimen Bronchial washing - Right and left lobes Performing Organization Address City/State/Zipcode Phone Number [facility] DEPARTMENT OF [address] [place] [address] PATHOLOGY AND [place] [address] HOSPITAL * Hepatic function panel (08/11/2018 4:55 AM CDT) Pathologist [facility] Albumin 2.4 (L) 3.5 - 5.0 g/dL [facility] Total bilirubin 0.3 0.2 - 1.2 mg/dL [facility] Bilirubin <0.2 0.0 - 0.4 mg/dL MICHAEL direct [facility] [place] Alkaline 146 (H) 0 - 104 U/L MICHAEL phosphatase [facility] [place] Protein 7.4 6.3 - 8.3 g/dL [facility] ALT 67 (H) 5 - 50 U/L [facility] AST 18 10 - 35 U/L [facility] Specimen Plasma specimen Performing Organization Address City/State/Zipcode Phone Number [facility] OF [address] [facility] [place] [address] PATHOLOGY AND GENOMIC MEDICINE [facility] [address] [place], [place] [id number] [place] [address] * US Thoracentesis With Imaging (08/10/2018 2:41 PM CDT) Specimen Narrative Performed At EXAMINATION:US THORACENTESIS WITH IMAGING RADIANT CLINICAL HISTORY:Pleural effusion COMPARISON:None. TECHNIQUE: The procedure's risks, benefits, and alternatives were discussed with the patient and written, informed consent was obtained. Using ultrasound guidance, the right pleural effusion was localized and the overlying posterior chest was prepped and draped in the usual sterile fashion. 1% buffered lidocaine was used for local anesthesia. All elements of maximal sterile barrier technique were followed. A 5 Faroese One-Step centesis catheter was inserted into the pleural space and 150 cc of purulent fluid removed. Post procedure images reveal a small residual effusion. The patient tolerated the procedure without difficulty and was discharged to the radiology recovery area for postprocedure chest x-ray prior to discharge. EBL: None. COMPLICATIONS: None. SPECIMENS: As above. IMPRESSION: Successful ultrasound-guided right thoracentesis with removal of 150 mL of purulent pleural fluid. Fluid sent for culture and sensitivity. [id number] Procedure Note Interface, Radiology Results Incoming - 08/10/2018 3:07 PM CDT EXAMINATION: US THORACENTESIS WITH IMAGING CLINICAL HISTORY: Pleural effusion COMPARISON:None. TECHNIQUE: The procedure's risks, benefits, and alternatives were discussed with the patient and written, informed consent was obtained. Using ultrasound guidance, the right pleural effusion was localized and the overlying posterior chest was prepped and draped in the usual sterile fashion. 1% buffered lidocaine was used for local anesthesia. All elements of maximal sterile barrier technique were followed. A 5 Faroese One-Step centesis catheter was inserted into the pleural space and 150 cc of purulent fluid removed. Post procedure images reveal a small residual effusion. The patient tolerated the procedure without difficulty and was discharged to the radiology recovery area for postprocedure chest x-ray prior to discharge. EBL: None. COMPLICATIONS: None. SPECIMENS: As above. IMPRESSION: Successful ultrasound-guided right thoracentesis with removal of 150 mL of purulent pleural fluid. Fluid sent for culture and sensitivity. [id number] Performing Organization Address City/[facility]/[place] [address] * Cell count and differential, body fluid (08/10/2018 2:15 PM CDT) [facility] fluid type Thoracentesis [facility] Color, fluid White [facility] Appearance, Cloudy (A) MICHAEL fluid [facility] [place] RBC, fluid 1,100,000 /CMM [facility] Nucleated 352,200 /CMM MICHAEL cells, fluid [facility] [place] Neutrophils, SEE COMMENT % MICHAEL fluid Comment: [facility] Only rare viable neutrophils [facility] seen. HOSPITAL Degree of degeneration of the specimen limits the ability to identify the cells. Many bacteria seen. Slide reviewed by Dr. Santos. MXO 08/10/201817:40 Specimen Fluid Performing Organization Address [facility] Phone Number [facility] DE[facility] [address] [place] [address] PATHOLOGY AND GENOMIC MEDICINE [facility] [address] * Protein, misc fluid (08/10/2018 2:15 PM CDT) Fluid type rll thoracentesis [facility] Protein, fluid 0.9 g/dL MICHAEL Comment: [facility] reference interval(s) and HOSPITAL other method performance specifications have not been established for this body fluid. The test results must be integrated into the clinical context for interpretation. Specimen Fluid Performing Organization Address City/[facility]/Zipcode Phone Number [facility] DEPARTMENT [facility] [place] [address] PATHOLOGY AND GENOMIC MEDICINE [address] * LDH, misc fluid (08/10/2018 2:15 PM CDT) [facility] LDH, fluid >2500 U/L MICHAEL Comment: [facility] The reference interval(s) and HOSPITAL other method performance specifications have not been established for this body fluid. The test results must be integrated into the clinical context for interpretation. Specimen Fluid Performing Organization Address City/[facility] Phone Number [facility] DEPARTMENT [address] * Glucose level, misc fluid (08/10/2018 2:15 PM CDT) Pathologist [facility] Fluid type [facility] Glucose, fluid 108 mg/dL MICHAEL Comment: [facility] The reference interval(s) and HOSPITAL other method performance specifications have not been established for this body fluid. The test results must be integrated into the clinical context for interpretation. Specimen Fluid Performing Organization Address [facility] Phone Number [facility] DEPARTMENT [address] * Partial thromboplastin time, activated (08/10/2018 1:15 PM CDT) [facility] PTT 27.7 23.0 - 36.0 sec MICHAEL Comment: [facility] INIGUEZ PTT therapeutic range for [facility] unfractionated heparin is HOSPITAL 61.0-112.0 seconds which corresponds to Anti-Xa 0.3-0.7 U/ml. Note:Change in Panic Value The PTT Panic Value is changing from 110 sec. to 100 sec. due to new instrumentation and reagents. Correlation studies have been performed to validate this result. Specimen Blood Performing Organization Address City/[facility]/Zipcode Phone Number [facility] DE[facility] OF [address] [facility] [place] [address] PATHOLOGY [facility] [address] [facility] [address] * Prothrombin time with INR (08/10/2018 1:15 PM CDT) [facility] Prothrombin 14.9 (H) 11.5 - 14.5 sec MICHAEL time [facility] [place] INR 1.20 MICHAEL Comment: YOEL INIGUEZ For patients on anticoagulant MISTY therapy, reference ranges HOSPITAL below: Indication: INR Value Treatment of Venous Thrombosis, 2.0-3.0 pulmonary emboli, or prophylaxis of a venous thrombosis, or systemic emboli. High dose, high risk patients 3.0-4.5 with mechanical valves. NOTE:INR values over 3.0 are sometimes associated with gastrointestinal hemorrhage, especially values over 4.0. Specimen Blood Performing Organization Address City/[facility] Phone Number [facility] DE[facility] OF [address] [place] [address] PATHOLOGY AND GENOMIC MEDICINE [address] * Cytology (non-gynecological) request (08/10/2018 8:38 AM CDT) Pathologist [facility] OF PATHOLOGY AND GENOMIC MEDICINE Cytology See link below for PDF Lab [facility] DE[facility] (non-gynecologi Report OF PATHOLOGY [place]) report AND GENOMIC MEDICINE Result status This is Final Report for [facility] [id number] OF PATHOLOGY AND GENOMIC MEDICINE Specimen Performing Organization Address [facility] Phone Number [facility] DE[facility] OF [address] [place] [address] PATHOLOGY AND GENOMIC MEDICINE * Hepatitis acute panel (08/10/2018 5:20 AM CDT) [facility] Hepatitis A IgM Non-reactive Non-reactive [facility] Hepatitis B Non-reactive Non-reactive MICHAEL core IgM [facility] Hepatitis B Non-reactive Non-reactive MICHAEL surface Ag [facility] [place] Hepatitis C Ab Non-reactive Non-reactive [facility] Specimen Serum Performing Organization Address City/[facility] Phone Number [facility] [address] [place] [id number] PATHOLOGY AND GENOMIC MEDICINE [address] * B natriuretic peptide (08/09/2018 5:47 PM CDT) Only the most recent of 2 results within the time period is included. [facility] BNP 24 0 - 100 pg/mL [facility] Specimen Blood Performing Organization Address City/[facility]/Zipcode Phone Number [facility] DE[facility]MENT OF [address] [place] [address] PATHOLOGY AND GENOMIC MEDICINE [place] [address] [place] [address] [facility] * Echocardiogram complete w contrast and 3D if needed (08/09/2018 4:57 PM CDT) Ao Root 2.67 cm HM [facility] Diameter AoV Area, Vmax 2.70 cm2 [facility] AoV Area, VTI 2.75 cm2 [facility] AoV Mean PG 5.63 mmHg [facility] AoV Peak PG 10.19 mmHg HM [facility] AoV Vmax 1.73 m/s [facility] AoV VTI 0.24 m [facility] BSA Soriano 2.28 m2 [facility] BSA 2.10 m2 [facility] IVS,d 0.72 cm HM [facility] IVS/LVPW,2D 1.15 [facility] Left Atrium 2.58 cm HM [facility] Dimension Anterior LV,d 4.86 cm HM [facility] LV EF,2D 76.37 % HM [facility] LV,s 3.00 cm HM [facility] LVOT area 3.36 cm2 HM [facility] LVOT Diam,S 2.07 cm HM [facility] LVOT Vmax 1.29 m/s HM [facility] LVOT VTI 0.18 m HM [facility] LVPWD,d 0.62 cm HM [facility] MV E A ratio 1.29 [facility] AoV area i VTI 1.31 cm2/m2 [facility] BSA [place] BMI 40.51 kg/m2 [facility] E wave 155.47 msec HM [facility] decelartion time MV Peak A Mikey 0.57 m/s HM [facility] MV valve area p 4.88 cm2 HM [facility] 1/2 method MV Peak E Mikey 0.74 m/s HM [facility] MV stenosis 45.09 ms HM [facility] pressure 1/2 time AV LVOT peak 6.52 mmHg HM [facility] gradient Ao Root 2.67 cm HM [facility] Diameter LV SYS VOL 35.09 ml HM [facility] LV WOOD VOL 110.55 ml HM [facility] LA area s A4C 17.67 cm2 HM [facility] LV SI Teich 2D 35.96 ml/m2 HM [facility] LV SV Teich 2D 75.46 ml HM [facility] LV Vol s Teich 35.09 ml HM [facility] PSAX LVOT CI 8.48 l/min/m2 [facility] LVOT CO 17.79 l/min HM [facility] LVOT HR for 284.05 bpm HM [facility] LVOT CO LVOT SI 29.85 ml/m2 HM [facility] BSA Haycock 2.25 m2 HM [facility] AoV Vmn 1.10 HM [facility] IVS s 2D 0.85 HM [facility] LV FS Teich 2D 38.18 HM [facility] MV AE ratio 0.78 HM [facility] LV FS Cube 2D 38.18 HM [facility] LVOT Vmn 0.85 [facility] Pt Size 162.56 HM [facility] Pt Wt 107.05 HM [facility] Aov area Vmn 2.78 cm2 HM [facility] LVOT mean grad 3.32 mmHg HM [facility] MAX Pred HR 177.90 HM [facility] 85 of MPHR 151.22 HM [facility] AoV area I VMN 1.32 cm2/m2 HM [facility] bsa Calc MPHR 177.90 bpm HM [facility] IVS pct thck 17.54 % [facility] PLAX LV SI Cube 2D 41.71 ml/m2 HM [facility] LV SV Cube 2D 87.53 ml HM [facility] LV vol d cube 114.61 ml HM [facility] 2D LV vol s cube 27.08 ml HM [facility] 2D LVPW pct thck 41.87 % HM [facility] PLAX LVPW s PLAX 0.89 cm HM [facility] MV Decel slope 4.76 m/s2 HM [facility] Pred Exer Dur 9.84 [facility] R1 Pred METS R1 9.23 [facility] LA Vol MOD A4C 49.61 ml HM [facility] Velocity Ratio 0.75 m/s [facility] (V1/V2) EF 68.26 % [facility] E/A ratio 1.30 [facility] Specimen Narrative Performed At [facility] Left Ventricular ejection fraction is 60 - 65% Normal left ventricular wall thickness and regional wall motion No significant valvular abnormalities. Performing Organization Address City/State/Zipcode Phone Number [facility] [address] [place] [address] * Sputum culture (08/09/2018 11:20 AM CDT) Only the most recent of 2 results within the time period is included. Sputum culture Normal oral sigifredo isolated. MICHAEL isolate Comment: [facility] Specimen Information HOSPITAL Specimen Source: Sputum Specimen Site: Expectorated Specimen Sputum - Expectorated Performing Organization Address City/State/Zipcode Phone Number [facility] DEPARTMENT OF [address] [place] [address] PATHOLOGY AND GENOMIC MEDICINE MICHAEL [facility] [address] [place] [address] [facility] * TB IN-TUBE Quantiferon plus (08/09/2018 6:06 AM CDT) Quantitative 0.040 IU/mL [facility] NIL REF [facility] Quantitative 0.040 IU/mL [facility] TB1 REF LAB Quantitative 0.150 IU/mL [facility] TB2 REF LAB Quantitative 0.620 IU/mL [facility] mitogen REF LAB Quant TB1-NIL 0.000 IU/mL [facility] REF [facility] Quant TB2-NIL 0.110 IU/mL [facility] REF [facility] Quantitative 0.580 IU/mL [facility] mitogen-NIL REF LAB Qualitative Negative [facility] interpretation Comment: REF LAB Results are POSITIVE when either of the following conditions are met: 1.Nil <=8.0 AND TB1-Nil >=0.35 AND >=25% of Nil (TB2 is any value) or 2.Nil <=8.0 AND TB2-Nil >=0.35 AND >=25% of Nil (TB1 is any value) Results are NEGATIVE when all of the following conditions are met: 1.Nil <=8.0 2.TB1-Nil and TB2-Nil < 0.35 or [>=0.35 AND < 25% of Nil] 3.Mitogen-Nil >=0.50 Results are INDETERMINATE under either of the following conditions: 1a.Nil <=8.0 AND Mitogen-Nil < 0.50 AND 1b 1b.Both TB1-Nil AND TB2-Nil < 0.35 or [>=0.35 AND <25% of Nil] 2.Nil > 8.0 Warnings and Limitations 1)A negative QFT-Plus result does not preclude the possibility of M. tuberculosis infection or tuberculosis disease: False-negative results can be due to stage of infection (e.g., specimen obtained prior to the development of cellular immune response), co-morbid conditions that affect immune function, incorrect handling of the blood collection tubes following venipuncture, incorrect performance of the assay, or other individual immunological variables. Heterophile antibodies or non-specific IFN-gamma production from other inflammatory conditions may mask specific responses to ESAT-6 or CFP-10 peptides. 2)A positive QFT-Plus result should not be the sole or definitive basis for determining infection with M. tuberculosis. Incorrect performance of the assay may cause false-positive QFT-Plus results. A positive QFT-Plus result should be followed by further medical evaluation for active TB disease (e.g., Acid Fast Bacilli smear and culture, chest X-ray). 3)While ESAT-6 and CFP-10 are absent from all BCG strains and from most known nontuberculous mycobacteria, it is possible that a positive QFT-Plus result may be due to infection by M. kansasii, M. szulgai, or M. marinum. If such infections are suspected, alternative tests should be performed. 4)A false-negative QFT-Plus result can be caused by incorrect blood sample collection or improper handling of the specimen affecting lymphocyte function. Please refer to Specimen Collection and Handling section, page 17, for correct handling of the blood specimens. Delay in incubation may cause false negative or indeterminate results, and other technical parameters may affect ability to detect a significant IFN-gamma response. 5)The effect of lymphocyte count on reliability of QFT-Plus results is unknown. Lymphocyte counts may vary over time for any individual person, and from person to person. The minimum number of lymphocytes required for a reliable test result has not been established and may also be variable. 6)A positive QFT-Plus result can suggest and support the diagnosis of tuberculosis disease. ESAT-6 and CFP-10 are present in M. tuberculosis, but infections by other mycobacteria, including M. kansasii, M. szulgai, and M.marinum may also cause positive results. Other diagnostic evaluations (e.g., AFB smear and culture, chest X-ray) besides QFT-Plus are needed to confirm tuberculosis disease. 7)The predictive value of a negative QFT-Plus result in immunosuppressed persons has not been determined. Specimen Blood Performing Organization Address City/State/Zipcode Phone Number [facility] DEPARTMENT OF [address] [place] [address] PATHOLOGY AND GENOMIC MEDICINE [facility] REF [facility] * MRSA screen culture (07/27/2018 5:46 AM CDT) [facility] MRSA screen No Methicillin Resistant MICHAEL culture isolate Staphylococcus aureus [facility] isolated. HOSPITAL Comment: Specimen Information Specimen Source: Nares Specimen Site: Left Specimen Nares - Left Performing Organization Address [facility] Phone Number [facility] DEPARTMENT OF [address] [place] [address] PATHOLOGY AND [facility] MEDICINE [place] [id number] * Troponin, I-Stat (07/26/2018 1:20 AM CDT) [facility] Troponin, 0.00 0.00 - 0.08 ng/mL MICHAEL I-Stat Comment: [facility] 0.09 - 1.49 [facility] ng/mlMay indicate increased risk of acute coronary syndrome. >=1.5 ng/ml Consistent with acute myocardial infarction. The diagnostic value of a single normal or non-diagnostic result is questionable.Serial samples at 2-6 hour intervals are required to rule out acute myocardial injury. Specimen Plasma specimen Performing Organization Address [facility] Phone Number [facility] [place] [address] [address] * Troponin (07/26/2018 1:20 AM CDT) Only the most recent of 3 results within the time period is included. [facility] Troponin <0.006 0.000 - 0.040 ng/mL MICHAEL Comment: [facility] changed methodology effective: 07/12/2018 at 10:00 am The new method has a 99th percentile cutoff of 0.040 ng/mL Specimen Plasma specimen Performing Organization Address [facility] Phone Number [facility] [place] [address] [place] [address] PATHOLOGY AND [facility] MEDICINE [address] * ECG 12 lead (07/26/2018 12:24 AM CDT) Only the most recent of 2 results within the time period is included. [facility] Ventricular 80 [facility] MUSE rate Atrial rate 80 [facility] MUSE OH interval 146 [facility] MUSE QRSD interval 96 [facility] M[facility] QT interval 370 [facility] M[facility] QTC interval 426 [facility] M[facility] P axis 1 47 [facility] MUSE QRS axis 1 81 [facility] MUSE T wave axis 50 [facility] MUSE EKG impression Normal sinus rhythm-Incomplete [facility] MUSE right bundle branch block-Borderline ECG-In automated comparison with ECG of 23-JUL-2018 15:34,-Incomplete right bundle branch block is now present-T wave inversion no longer evident in Inferior leads- Specimen Narrative Performed At Performing Organization Address City/State/Zipcode Phone Number [facility] [address] [place] [address] * Urine culture (07/24/2018 5:59 PM CDT) Only the most recent of 2 results within the time period is included. [facility] Urine culture Mixed sigifredo <=10-3 col/cc MICHAEL isolate Comment: [facility] Specimen Information HOSPITAL Specimen Source: Urine Specimen Site: Clean catch Specimen Urine Performing Organization Address City/[facility]/Zipcode Phone Number [facility] DEPARTMENT OF [address] [place] [address] PATHOLOGY AND GENOMIC MEDICINE MICHAEL [facility] [address] [place] [address] HOSPITAL * Respiratory pathogen panel (07/24/2018 12:20 PM CDT) [facility] Respiratory Negative for all pathogens MICHAEL pathogen panel tested: [facility] Negative for Adenovirus [facility] Negative for Coronavirus HKU1 Negative for Coronavirus NL63 Negative for Coronavirus 229E Negative for Coronavirus OC43 Negative for Human Metapneumovirus Negative for Rhinovirus/Enterovirus Negative for Influenza A Negative for Influenza A/H1 Negative for Influenza A/H3 Negative for Influenza A/H1-2009 Negative for Influenza B Negative for Parainfluenza Virus 1 Negative for Parainfluenza Virus 2 Negative for Parainfluenza Virus 3 Negative for Parainfluenza Virus 4 Negative for Respiratory Syncytial Virus Negative for Bordetella pertussis Negative for Chlamydophila pneumoniae Negative for Mycoplasma pneumoniae This real-time PCR assay detects the presence of nucleic acids (RNA or DNA) for the respiratory pathogens listed. A result of "Not-detected" does not exclude the possibility of the presence of one or more pathogens at concentrations less than the detectable limits of the assay. Comment: Specimen Information Specimen Source: Nares Specimen Site: Right Specimen Nares - Right Performing Organization Address [facility] Phone Number [facility] DEPARTMENT OF [address] [place] [address] PATHOLOGY AND [facility] MEDICINE MICHAEL [facility] [address] [place] [address] * Streptococcus pneumoniae urinary antigen (07/24/2018 11:50 AM CDT) Strep pneumo Negative for Streptococcus MICHAEL urinary Ag pneumoniae antigen. [facility] Comment: HOSPITAL Specimen Information Specimen Source: Urine Specimen Site: Midstream Specimen Urine - Midstream Performing Organization Address [facility] Phone Number [facility] [place] [address] PATHOLOGY [address] * Legionella urinary antigen (07/24/2018 11:50 AM CDT) Legionella Negative for Legionella MICHAEL urinary antigen serogroup 1 antigen. [facility] Comment: HOSPITAL Specimen Information Specimen Source: Urine Specimen Site: Midstream Specimen Urine - Midstream Performing Organization Address [facility] Phone Number [facility] DEPARTMENT OF [address] [place] [address] PATHOLOGY AND [facility] * CT Angiogram Pe Chest (07/23/2018 6:24 PM CDT) Specimen Narrative Performed At EXAMINATION: [facility] CT ANGIOGRAM PE CHEST CLINICAL HISTORY: pleuritic chest pain TECHNIQUE: CT angiographic images of the chest were obtained during intravenous administration of iodinated contrast. Computerized reformatted images and 3-D MIP images were also obtained and archived (CT pulmonary embolus protocol).All CT images were acquired using low-dose technique with automated exposure control. COMPARISON: June 29, 2015 FINDINGS: 1.The main pulmonary artery, right pulmonary artery and left pulmonary artery are patent. However lobar and segmental branch evaluation is limited due to significant artifact. 2.Heart size is normal. The thoracic aorta is of normal caliber. No mediastinal lymphadenopathy. 3.Small to moderate size right pleural effusion. 4.There are groundglass opacities in lungs bilaterally in addition to a right upper lobe opacity. Findings may relate to sequela of infection. 5.Diffuse fatty infiltration liver. Cholecystectomy. 6.Osseous structures are intact. IMPRESSION: 1.Bilateral groundglass opacities in addition to right upper lobe infiltrate likely relating to infection/pneumonia. Small right pleural effusion. Minimal right basilar atelectasis. 2.Diffuse fatty infiltration liver 3.Limited evaluation of the pulmonary arteries. The main pulmonary artery, right pulmonary artery and left pulmonary artery are patent. There is no evidence to suggest central pulmonary embolus. Lobar and branch vessel evaluation is significantly limited bilaterally secondary to artifact. [facility]-[id number] Procedure Note Interface, Radiology Results Incoming - 07/23/2018 7:54 PM CDT EXAMINATION: CT ANGIOGRAM PE CHEST CLINICAL HISTORY: pleuritic chest pain TECHNIQUE: CT angiographic images of the chest were obtained during intravenous administration of iodinated contrast. Computerized reformatted images and 3-D MIP images were also obtained and archived (CT pulmonary embolus protocol). All CT images were acquired using low-dose technique with automated exposure control. COMPARISON: June 29, 2015 FINDINGS: 1. The main pulmonary artery, right pulmonary artery and left pulmonary artery are patent. However lobar and segmental branch evaluation is limited due to significant artifact. 2. Heart size is normal. The thoracic aorta is of normal caliber. No mediastinal lymphadenopathy. 3. Small to moderate size right pleural effusion. 4. There are groundglass opacities in lungs bilaterally in addition to a right upper lobe opacity. Findings may relate to sequela of infection. 5. Diffuse fatty infiltration liver. Cholecystectomy. 6. Osseous structures are intact. IMPRESSION: 1. Bilateral groundglass opacities in addition to right upper lobe infiltrate likely relating to infection/pneumonia. Small right pleural effusion. Minimal right basilar atelectasis. 2. Diffuse fatty infiltration liver 3. Limited evaluation of the pulmonary arteries. The main pulmonary artery, right pulmonary artery and left pulmonary artery are patent. There is no evidence to suggest central pulmonary embolus. Lobar and branch vessel evaluation is significantly limited bilaterally secondary to artifact. [facility]-[id number] Performing Organization Address City/State/Zipcode Phone Number [facility] [address] [place] [address] * ECG ED Preliminary Interpretation - Not an Order (07/23/2018 3:45 PM CDT) Narrative Performed At Shorty Herrera MD 07/23/2018 11:09 PM ECG ED Preliminary Interpretation - Not an Order Performed by: Shorty Herrera MD Authorized by: Shorty Herrera MD ECG reviewed by ED Physician in the absence of a car stereo installer: yes Interpretation: Interpretation: abnormal Rate: ECG rate:95 ECG rate assessment: normal Rhythm: Rhythm: sinus rhythm Ectopy: Ectopy: none QRS: QRS axis:Normal QRS intervals:Normal Conduction: Conduction: normal ST segments: ST segments:Normal T waves: T waves: normal Q waves: Q waves:III * CT Abdomen Pelvis W Contrast (04/18/2018 12:45 PM INSTRUMENT MAKER APPRENTICE) Specimen Narrative Performed At EXAMINATION:CT ABDOMEN PELVIS W CONTRAST RADIANT CLINICAL HISTORY:Nauseavomiting TECHNIQUE: Multiple axial images [...] stranding. 2.Additional bilateral nonobstructing nephrolithiasis. 3.Hepatic steatosis. [facility]-[id number] Procedure Note [facility], Radiology Results Incoming - 04/18/2018 12:52 PM INSTRUMENT MAKER APPRENTICE EXAMINATION: CT ABDOMEN PELVIS W CONTRAST CLINICAL [...] Additional bilateral nonobstructing nephrolithiasis. 3. Hepatic steatosis. [facility]-[id number] Performing Organization Address City/[facility]/Zipcode Phone Number [facility] [address] [place] [address] * Lipase level (04/18/2018 9:46 AM INSTRUMENT MAKER APPRENTICE) [facility] Lipase 27 13 - 60 U/L [facility] Specimen Plasma specimen Performing Organization Address City/[facility]/Zipcode Phone Number [facility] [address] [place] [address] PATHOLOGY AND GENOMIC MEDICINE [address] * Urinalysis screen and microscopy, with reflex to culture (04/18/2018 8:52 AM INSTRUMENT MAKER APPRENTICE) Specimen site Clean catch [facility] Color, UA Yellow [facility] Appearance, UA Cloudy [facility] Specific 1.017 1.001 - 1.035 MICHAEL gravity, [facility] pH, UA 6.0 5.0 - 8.5 [facility] Protein, UA 1+ (A) Negative [facility] Glucose, UA Negative Negative [facility] Ketones, UA Negative Negative [facility] Bilirubin, UA Negative Negative [facility] Blood, UA Large (A) Negative [facility] Nitrite, UA Negative Negative [facility] Urobilinogen, Negative <2.0 [facility] Leukocyte Trace (A) Negative MICHAEL esterase, UA [facility] Epithelial Many /HPF MICHAEL cells, UA [facility] WBC, UA 8 (H) 0 - 5 /HPF [facility] RBC, UA >200 (H) 0 - 5 /HPF [facility] Bacteria, UA Moderate (A) None seen [facility] Yeast, UA Moderate (A) [facility] Yeast with None seen MICHAEL pseudohyphae, [facility] Specimen Urine Performing Organization Address City/[facility] Phone Number [facility] [address] [place] [address] PATHOLOGY AND GENOMIC MEDICINE [place] [address] [address] * hCG qualitative, urine screen (04/18/2018 8:52 AM INSTRUMENT MAKER APPRENTICE) hCG Negative Negative MICHAEL qualitative, Comment: [facility] urine The manufacturers stated [facility] sensitivity of HcG test for HOSPITAL serum is >/=10 mIU/ml and urine is >/=20mIU/ml. Specimen Urine Performing Organization Address [facility] Phone Number [place] [address] [place] [address] PATHOLOGY AND GENOMIC MEDICINE [address] after 11/24/2017 Insurance Type Payer Benefit Subscriber ID Effective Phone Address Plan / Dates Group HMO/PPO [facility] xxxxxxxxx 2018-P THC[employer] resent CHOICE/CHO ICE + Advance Directives For more information, please contact: [phone] Patient Reservationist Explanation Type Date Recorded Advance Directives, 07/23/2018 4:58 PM Living Will and Medical Power of Energy Efficiency Specialist Advance Directives, 11/25/2016 11:45 AM Living Will and Medical Power of Energy Efficiency Specialist Advance Directives, 04/18/2018 9:26 AM Living Will and Medical Power of Energy Efficiency Specialist Advance Directives, 08/08/2018 8:21 PM Living Will and Medical Power of Energy Efficiency Specialist
[2018-11-25 15:45] VITALS: BP 122/83
--- NOTE | 2019-01-03 07:30 | Operative Report ---
DATE OF PROCEDURE: SURGEON: José Parker MD PREOPERATIVE DIAGNOSES: 1. Left ureterolithiasis. 2. Left nephrolithiasis. 3. Left indwelling ureteral stent for hydronephrosis. POSTOPERATIVE DIAGNOSES: 1. Left ureterolithiasis. 2. Left nephrolithiasis. 3. Left indwelling ureteral stent for hydronephrosis. 4. Cystocele. 5. Rectocele. 6. Urethral hypermobility. 7. Atrophic (senile) vaginitis. OPERATIONS PERFORMED: Note, these are all staged procedures as part of multi-staged and multi-step process in managing the patient's urolithiasis. 1. Cystourethroscopy with complicated removal of left indwelling ureteral stent (separate procedure performed for the diagnosis of the stent done with separate scope). 2. Left semi-rigid ureteroscopy with stone manipulation and extraction (separately performed for the left ureterolithiasis). 3. Left flexible ureteropyeloscopy with stone manipulation and extraction (separately performed with a separate scope for the diagnosis of nephrolithiasis. 4. Radiological services with supervision and interpretation of ureteroscopy. 5. Interpretation of retrograde ureteropyelography. 6. Supervision of fluoroscopy, no radiologist present. 7. Cystourethroscopy with insertion of left indwelling ureteral stent (separate procedure performed to relieve the hydronephrosis). 8. Pelvic examination under anesthesia. ANESTHESIA: General. COMPLICATIONS: None. CLINICAL SUMMARY: Meme Urrutia is a 43-year-old woman with the above preoperative diagnoses. She is brought for the above procedure. She is aware of the risks of bleeding, infection, injury to adjacent structures, need for additional procedures and she elected to proceed. OPERATIVE PROCEDURE IN DETAIL: Informed consent was verified. Meme Urrutia was properly identified, taken to the operating room, placed on the cystoscopy table in supine position. Anesthesia was uneventfully begun. The patient was then carefully gently repositioned in the dorsal lithotomy position with all pressure points well padded. Her genitalia were prepared and draped in the usual sterile fashion. The cystoscope sheath with the obturator in place was atraumatically inserted into the patient's urethra and bladder was drained. Panendoscopy of the bladder revealed no suspicious mucosal lesions, no tumors, no stones, and no diverticula. There was a stent emerging from the left ureteral orifice and it was somewhat encrusted by whitish debris, which could be consistent with Celina. A guidewire was then placed alongside the stent and guided to the level of the patient's kidney. The stent was then grasped, completely removed and discarded. Semi-rigid ureteroscope was then placed alongside the guidewire and it was guided into the left ureter. We identified stones. The stone burden was grasped with a tipless basket and was extracted atraumatically. Secondary guidewire was left in place and over the secondary guidewire, flexible ureteroscope was then brought up to the level of the patient's kidney, where panendoscopy revealed additional stone material and panendoscopy revealed no suspicious mucosal lesions, but Eugenio's plaques were noted. We manipulated the left kidney stones as we were removing the ureteroscope. With cystoscopic fluoroscopic guidance, the left-sided indwelling ureteral stent was then placed, it was coiled in the patient's kidneys as well as the patient's bladder and the retaining suture was cut short. Interpretation of retrograde ureteropyelography contrast was instilled in a retrograde fashion bilaterally. There was chronic appearing fullness of the left-sided collecting system. There were some filling defects, which corresponded to stones that we managed ureteroscopically. The stent was in good position and coiled the patient's kidney as well the patient's bladder at the end of the case. The patient's bladder was drained and the cystoscope was withdrawn. Pelvic examination revealed a cystocele, rectocele with urethral hypermobility and atrophic vaginitis. No abnormal palpable pelvic masses could be appreciated. There were no obvious mucosal lesions. The patient was then uneventfully reversed from anesthesia and taken to the recovery room in stable condition. Explicit postop instructions were given. Plans will be to return the patient to the operating room after about a month to remove her stent, perform ureteroscopy and hopefully render the patient stent free and stone free. In the meantime, the patient was prescribed Macrobid, Augmentin, Diflucan, Ditropan, and Tylenol 3. José Parker MD [place]/[facility] /[id number]
== END | disposition home or self-care (01) ==
LOC: OR 11:00
PROVIDERS: ATTEND Urology
DX: N20.0 Calculus of kidney (principal); N20.1 Calculus of ureter; Z46.6 Encounter for fitting and adjustment of urinary device; N13.30 Unspecified hydronephrosis; N81.10 Cystocele, unspecified; N81.6 Rectocele; N36.41 Hypermobility of urethra; N95.2 Postmenopausal atrophic vaginitis; N28.89 Other specified disorders of kidney and ureter; N39.46 Mixed incontinence; R80.9 Proteinuria, unspecified; D64.9 Anemia, unspecified; R35.1 Nocturia; K58.9 Irritable bowel syndrome, unspecified; K21.9 Gastro-esophageal reflux disease without esophagitis; J45.909 Unspecified asthma, uncomplicated; F41.9 Anxiety disorder, unspecified; E66.9 Obesity, unspecified; Z68.39 Body mass index [BMI] 39.0-39.9, adult; Z87.01 Personal history of pneumonia (recurrent); Z80.51 Family history of malignant neoplasm of kidney; Z84.1 Family history of disorders of kidney and ureter
CPT/HCPCS: 52332; 52352; 74018; 74420; 81025; 87086; 88300; C2617; J0696; J1100; J1450; J1580; J2001; J2250; J2405; J2704; J3010; Q9967

== ENCOUNTER → 2023-05-11 | Day surgery (SDC) | payer BC ==
[2023-05-07 14:44] LABS: BASOPHILS % 0.4 % (0.0-1.0); EOSINOPHILS # (AUTO) 0.2 (0.0-0.4); EOSINOPHILS % 2.7 % (0.0-6.0); HEMATOCRIT 42.6 % (34.2-44.1); HEMOGLOBIN 13.3 g/dL (12.0-16.0); LYMPHOCYTES # (AUTO) 3.1 (1.0-3.2); LYMPHOCYTES % 37.2 % (18.0-39.1); MEAN CORPUSCULAR HEMOGLOBIN 29.3 pg (28-32); MEAN CORPUSCULAR HGB CONC 31.2 g/dL (31-35); MEAN CORPUSCULAR VOLUME 93.8 fL (81-99); MONOCYTES # (AUTO) 0.6 (0.2-0.8); MONOCYTES % 6.7 % (4.4-11.3); NEUTROPHILS # (AUTO) 4.3 (2.1-6.9); NEUTROPHILS % 52.8 % (38.7-80.0); PLATELET COUNT 261 x10e3/uL (140-360); RED BLOOD COUNT 4.54 x10e6/uL (3.6-5.1); RED CELL DISTRIBUTION WIDTH 13.3 % (11.7-14.4)
[2023-05-07 15:01] LABS: ALBUMIN/GLOBULIN RATIO 1.2 (0.8-2.0); ANION GAP 13.8 mmol/L (8-16); BILIRUBIN,TOTAL 0.5 mg/dL (0.2-1.2); CALCIUM 9.3 mg/dL (8.4-10.2); CREATININE, SERUM 0.73 mg/dL (0.57-1.11); POTASSIUM 3.8 mmol/L (3.5-5.1); TOTAL PROTEIN 7.4 g/dL (6.5-8.1); URIC ACID 5.4 mg/dL (2.6-8.0)
[2023-05-08 09:12] LABS: CALCIUM 9.1 mg/dL (8.7-10.2)
[~2023-05-11] MED LIST changes: -B&O 60MG R/S 60 MG SUPP PR ONE; -CEFTRIAXONE SOD 1 GM/NS 50 ML 50 ML IV ONE; +CRESTOR10 MG PO; +DEXAMETHASONE SOD PHOS INJ 4 MG/ML SDV ONE; -DEXAMETHASONE SOD PHOS INJ 4 MG/ML VIAL ONE; +DOXYCYCLINE HY100 MG PO; +FLOMAX0.4 MG PO; -FLUCONAZOLE 200 MG/100 ML 100 ML IV ONE; -GENTAMICIN 80MG/NS 100 ML 200 ML IV ONE; -MIDAZOLAM HCL 2 MG/2 ML VIAL ONE; +PAXIL40 MG PO; +TOPAMAX50 MG PO
[2023-05-11] MEDS: LACTATED RINGER'S 1,000 ML ONE (05:44)
[2023-05-11] MEDS: CEFTRIAXONE 1 GM VIAL ONE (05:46)
[2023-05-11] MEDS: KETOROLAC TROMETHAMINE 30 MG/ML VIAL ONE (08:41)
[2023-05-11] MEDS: PHENAZOPYRIDINE HCL 100 MG TAB ONE (08:57)
[2023-05-11] MEDS: ACETAMINOPHEN/CODEINE 300MG - 30MG TAB ONE (09:06)
[2023-05-11 09:25] VITALS: BP 121/68; PULSE 65; RESP 16; O2SAT 97
== END | disposition home or self-care (01) ==
LOC: OR 05:11
PROVIDERS: ATTEND Urology
DX: N20.0 Calculus of kidney (principal); N39.0 Urinary tract infection, site not specified; N81.2 Incomplete uterovaginal prolapse; N36.41 Hypermobility of urethra; N32.89 Other specified disorders of bladder; N13.30 Unspecified hydronephrosis; N21.0 Calculus in bladder; D64.9 Anemia, unspecified; E78.5 Hyperlipidemia, unspecified; F41.9 Anxiety disorder, unspecified; F32.A Depression, unspecified; Z01.812 Encounter for preprocedural laboratory examination; Z01.818 Encounter for other preprocedural examination; Z79.899 Other long term (current) drug therapy; Z68.41 Body mass index [BMI] 40.0-44.9, adult; Z80.51 Family history of malignant neoplasm of kidney; Z84.1 Family history of disorders of kidney and ureter
CPT/HCPCS: 36415; 50590; 52332; 74018; 80053; 83970; 84550; 85025; 87086; C1758; C2617; J0696; J1885; J3010; J7121; Q9967; J1100; J2001; J2405

== ENCOUNTER → 2023-06-18 | Day surgery (SDC) | payer BC ==
[2023-06-17 13:30] LABS: BASOPHILS % 0.4 % (0.0-1.0); EOSINOPHILS # (AUTO) 0.4 (0.0-0.4); EOSINOPHILS % 4.1 % (0.0-6.0); HEMATOCRIT 39.6 % (34.2-44.1); LYMPHOCYTES # (AUTO) 2.9 (1.0-3.2); LYMPHOCYTES % 29.9 % (18.0-39.1); MEAN CORPUSCULAR HEMOGLOBIN 29.5 pg (28-32); MEAN CORPUSCULAR HGB CONC 32.8 g/dL (31-35); MONOCYTES # (AUTO) 0.7 (0.2-0.8); MONOCYTES % 7.5 % (4.4-11.3); NEUTROPHILS # (AUTO) 5.6 (2.1-6.9); NEUTROPHILS % 57.7 % (38.7-80.0); PLATELET COUNT 294 x10e3/uL (140-360); RED CELL DISTRIBUTION WIDTH 12.9 % (11.7-14.4); WHITE BLOOD COUNT 9.66 x10e3/uL (4.8-10.8)
[2023-06-17 13:47] LABS: ANION GAP 15.2 mmol/L (8-16); CALCIUM 9.5 mg/dL (8.4-10.2); CREATININE, SERUM 0.81 mg/dL (0.57-1.11); POTASSIUM 4.2 mmol/L (3.5-5.1)
[~2023-06-18] MED LIST changes: +AMITRIPTYLINE H10 MG PO; +CEFAZOLIN SODIUM 2 GM ONE; +DEXMEDETOMIDINE HCL 200 MCG/2 ML VIAL ONE; +FAMOTIDINE 20 MG/2 ML VIAL IV ONE; -IOPAMIDOL 610MG/1ML 300 MG/ML VIAL IV ONE; +MIDAZOLAM HCL 2 MG/2 ML VIAL ONE; +VESICARE5 MG PO
[2023-06-18] MEDS: GENTAMICIN 80MG/NS 100 ML 200 ML IV ONE (11:09)
[2023-06-18] MEDS: CEFTRIAXONE 1 GM VIAL ONE (11:09)
[2023-06-18] MEDS: LACTATED RINGER'S 1,000 ML ONE (11:09)
[2023-06-18 13:47] VITALS: TEMP 97.9
[2023-06-18 14:50] VITALS: BP 131/91; PULSE 74; RESP 16; O2SAT 96
== END | disposition home or self-care (01) ==
LOC: OR 09:33
PROVIDERS: ATTEND Urology
DX: N20.0 Calculus of kidney (principal); N20.1 Calculus of ureter; Z46.6 Encounter for fitting and adjustment of urinary device; N13.30 Unspecified hydronephrosis; N36.41 Hypermobility of urethra; N81.2 Incomplete uterovaginal prolapse; R35.1 Nocturia; N39.3 Stress incontinence (female) (male); R80.9 Proteinuria, unspecified; D64.9 Anemia, unspecified; E66.01 Morbid (severe) obesity due to excess calories; E78.5 Hyperlipidemia, unspecified; F41.9 Anxiety disorder, unspecified; F32.A Depression, unspecified; Z01.812 Encounter for preprocedural laboratory examination; Z01.818 Encounter for other preprocedural examination; Z79.899 Other long term (current) drug therapy; Z68.41 Body mass index [BMI] 40.0-44.9, adult; Z80.51 Family history of malignant neoplasm of kidney
CPT/HCPCS: 36415; 52352; 74018; 74420; 80048; 81025; 84550; 85025; 87086; 88300; J0696; J1100; J1580; J2001; J2250; J2405; J2704; J3010; J7121